=== PATIENT | female | born 1960 | race Caucasian/White ===

== ENCOUNTER 2022-12-26 07:20 | Outpatient (CLI) | payer OTHER, SELFPAY ==
--- NOTE | 2022-12-26 | ECG_ITS ---
[facility] Test Date: 2022-12-26 Pat Name: Amna Rangel Department: Room: Gender: Female School Admissions Representative: Amanda MarinWayne : 1960 Requested By: India Barrett Order Number: [id number] Maribel MD: India Barrett M.D. Interpretive Statements NAME OF STUDY: LEXISCAN SESTAMIBI STRESS TEST INDICATION: Chest Pain PROCEDURE: At the baseline, the blood pressure was 153/92 mm Hg with a heart rate of 54 bpm. The electrocardiogram showed sinus bradycardia, normal axis with no significant ST-T wave changes. ??? The Lexiscan was infused over a period of 20 seconds. A total of 0.4 milligrams of Lexiscan was infused. The stress phase was continued for a total of 5 minutes. Heart rate at the end of the stress phase was 87 bpm with a blood pressure of 142/90 mm Hg. The EKG at the peak infusion revealed sinus tachycardia with no significant ST-T wave changes. ??? Sestamibi was injected 20 seconds after the Lexiscan infusion. ??? Blood pressure at the end of the recovery phase was 124/90 mm Hg with a heart rate of 74 beats per minute. ??? CONCLUSION: 1. No significant EKG changes with the LexiScan infusion. 2. No LexiScan induced chest pain or cardiac arrhythmia. 3. Normal blood pressure and heart rate response. 4. Sestamibi/sestamibi perfusion scan pending; see separate report. Electronically Signed On 01-03-2023 23:32:20 CDT by India Barrett M.D. [id number]
[2022-12-26 07:42] VITALS: BMI 23.6
--- NOTE | 2022-12-26 07:43 | NMCV_ITS ---
NM you perf SPECT r/s* [id number] Juan Carlos Amna Age: 62 Gender: F : 1960 Exam Date: 12/26/2022 08:21 Ordering Phys: India Barrett MD ([email or web address]) Technologist: JANELLE Tellez Exam Location: [facility] Indications: CHEST PAIN, SHORTNESS OF BREATH STRESS TEST Please [facility] IMAGE PROTOCOL Rest/Stress 1 Lexiscan Day Radiopharmaceutical Dose (mCi) Administration Site Administered by Rest: Tc-99m 10.4 IV JANELLE Rios Sestamibi Stress:Tc-99m 32.6 IV JANELLE Rios Sestamibi Rest: 26-Dec-2022 60 Discovery 630 Stress: 26-Dec-2022 30 Discovery 630 0.4mg Lexiscan. Images obtained in supine and prone position. SPECT RESULTS Technical Quality: Excellent Raw Data Analysis: Normal Image Corrections: No attenuation or motion correction applied Summed Stress Score: 1 Summed Rest Score: 0 Summed Difference Score: 1 PERFUSION FINDINGS Very small sized perfusion abnormality of mild severity in apical lateral pete on supine stress images with improved tracer uptake in prone stress images. FUNCTIONAL RESULTS (calculated via Gated SPECT) Stress Image LV EF (%): 91 Stress EDV (mL):55 TID: 1.07 Stress ESV (mL):5 FUNCTIONAL FINDINGS: The left ventricle is normal in size. Transient Ischemia Dilatation of 1.1. The left ventricular ejection fraction is normal with a value of 91%. There is hyperdynamic left ventricular global systolic function. There is hyperdynamic left ventricular wall thickening. IMPRESSIONS 1. Myocardial perfusion imaging is normal. 2. Overall left ventricular systolic function is abnormal with regional wall motion abnormalities, LVEF=91%. 3. EKG portion of the study will be reported separately. 4. Scan indicates low risk for cardiac events. India Barrett MD (Electronically Signed) Final Date: 03 January 2023 23:27 S
--- NOTE | 2022-12-26 08:48 | PC.NURSE ---
Stress test - physician notified Pt reports she is unable to walk on treadmill due to knee injury and past knee surgeries. Pt is not willing to try treadmill test. Dr. Barrett notified by phone and received new orders for Lexiscan Mibi.
[2022-12-26] MEDS: regadenoson 0.4 Mg/5 ml Syringe IVP (09:08)
[2022-12-26] MEDS: ondansetron 2 mg/ML SDV 2 mL 4 MG IVP (09:13)
[2022-12-26 09:18] VITALS: BP 124/90; PULSE 77
== END 2022-12-26 07:21 | disposition home or self-care (01) ==
LOC: CDL 07:22
PROVIDERS: PCP Family Medicine; Visit Provider Internal Medicine Cardiovascular Disease
DX: R06.02 Shortness of breath (principal); R07.9 Chest pain, unspecified
CPT/HCPCS: 36415; 78452; 93017; 96375; A9500; J2405; J2785

== ENCOUNTER 2023-10-23 11:10 | Emergency (ER) | payer OTHER, SELFPAY ==
--- NOTE | 2023-10-23 11:15 | XR_ITS ---
WS: [id number] Exam: XR chest 1V portable [id number] Date/Time of Exam: 10/23/2023 11:23 AM Reason For Exam: cp No priors. The lungs are clear and fully expanded. Normal cardiomediastinal silhouette. No pleural effusions. S shaped thoracic scoliosis. Surgical clips in the RIGHT axilla. XR/XR chest 1V portable [id number] IMPRESSION: 1. No acute cardiopulmonary finding.
--- NOTE | 2023-10-23 11:15 | ECG_ITS ---
[facility] Test Date: 2023-10-23 Pat Name: Amna Rangel Department: Room: Gender: Female Qualifications Examiner: : 1960 Requested By: Sarah Francois Order Number: [id number] Maribel MD: Luis Martinez M.D. Measurements Intervals [place] Rate: 75 P: 47 NM: 150 QRS: 6 QRSD: 70 T: 29 QT: 345 QTc: 387 Interpretive Statements SINUS RHYTHM LEFT ATRIAL ENLARGEMENT [-0.15mV P-WAVE IN V1/V2] NONSPECIFIC T-WAVE ABNORMALITY INTERPRETATION BASED ON A DEFAULT AGE OF 40 YEARS Compared to ECG 09/02/2018 17:34:37 Atrial abnormality now present T-wave abnormality now present Left ventricular hypertrophy no longer present ST (T wave) deviation no longer present Electronically Signed On 10-23-2023 23:47:35 CDT by Luis Martinez M.D. [id number]
[2023-10-23 11:16] VITALS: BP 108/74; PULSE 79; RESP 16; TEMP 36.7; O2SAT 94
--- NOTE | 2023-10-23 11:43 | W.ED.CHESTPA ---
HPI - Chest Pain General: Chief Complaint: Chest Pain Stated Complaint: Chest Pain Time Seen by Provider: 10/23/23 11:24 Mode of arrival: ambulatory Limitations: no limitations History of Present Illness: 63-year-old female has a history of coronary disease states she had stents placed 5 years ago she states that she started having chest pain felt nauseous diaphoretic this morning she taken nitro states her pain is since resolved states she still having some mild discomfort in her left shoulder though. Denies any cough denies any fevers. Associated symptoms: Deny abdominal pain, dyspnea, fever(s), nausea or vomiting Review of Systems Const: Denies: fever(s), chills, body aches or change in appetite ENMT: Denies: throat pain or dental pain Card: Reports: chest pain Resp: Denies: dyspnea GI: Denies: abdominal pain, nausea, vomiting or diarrhea Musc: Denies: neck pain or back pain Skin/Breast: Denies: rash Neuro: Denies: headache(s) PFSH ED PFSH: Medical History Coronary artery disease GERD (gastroesophageal reflux disease) HTN (hypertension) Asthma Hyperlipidemia Surgical History History of coronary artery stent placement 2019 Family History Sister Asthma Mother Cancer Rheumatoid arthritis Family/Other Cancer Father Cancer Grandmother Stroke Social History Smoking and tobacco/nicotine status: former use of tobacco/nicotine Alcohol intake: current Alcohol intake frequency: holidays/special occasions only Substance/Drug Use: never Physical Exam Const: COMMON NORMALS: patient oriented x3 HENMT: COMMON NORMALS: normocephalic and atraumatic HEAD & SCALP: normocephalic and atraumatic Eye: COMMON NORMALS: Equal, round and reactive pupils present and EOMs intact bilaterally PUPIL: Yes Equal, round and reactive pupils present Neck/C-Spine: COMMON NORMALS: full ROM and supple Chest: COMMONS NORMALS: normal inspection of the chest and normal palpation of entire chest wall Resp: COMMON NORMALS: normal respiratory effort, No retractions, No use of accessory muscles and clear to auscultation bilaterally AUSCULTATION: clear to auscultation bilaterally Cardio: COMMON NORMALS: regular rate, regular rhythm and No murmurs present (Cardio) RATE: regular rate RHYTHM: regular rhythm GI: COMMON NORMALS: Normal to inspection, nondistended, normoactive bowel sounds present, Soft to palpation, non-tender and no masses PALPATION: Yes Soft to palpation Extremity: COMMON NORMALS: normal to inspection and full ROM Neuro: COMMON NORMALS: patient oriented x3, moves all extremities and no focal motor deficits Psych: COMMON NORMALS: mental status grossly normal, Normal thought process present and cooperative THOUGHT PROCESS: Normal thought process present Skin: COMMON NORMALS: no rashes or lesions noted and no wounds GENERAL SKIN EXAM: no rashes or lesions noted Course Vital Signs: Vital signs: Vital Signs Temperature 98.0 F 10/23/23 11:16 Pulse Rate 77 10/23/23 15:00 Respiratory Rate 16 10/23/23 15:00 Blood Pressure 128/71 10/23/23 15:00 Pulse Oximetry 94 10/23/23 15:00 Oxygen Delivery Me thod Room Air 10/23/23 15:00 MDM - Chest Pain Medical Decision Making Patient presents for chest pain since resolved. She has no signs of acute ACS dissection or pulm embolism EKGs and troponins here are negative she is to follow-up with cardiology I feel she is stable for discharge informed if she worsen she is to return she understands agrees to plan. Medical Records I reviewed the patient's medical records. Lab Data I reviewed the patient's lab results. 10/23/23 11:37 10/23/23 11:37 Radiology Impressions Chest X-Ray 10/23/23 11:15 IMPRESSION: 1. No acute cardiopulmonary finding. Laboratory Results WBC 4.75 10^3/uL (3.29-11.43) 10/23/23 11:37 RBC 6.32 10^6/uL (3.85-5.65) H 10/23/23 11:37 Hgb 17.70 g/dL (11.27-16.99) H 10/23/23 11:37 Hct 53.4 % (36-47) H 10/23/23 11:37 MCV 84.5 fl (85-98) L 10/23/23 11:37 MCH 28.0 pg (27-33) 10/23/23 11:37 MCHC 33.1 g/dL (30-55) 10/23/23 11:37 RDW 12.0 % (12.1-15.1) L 10/23/23 11:37 Plt Count 152 10^3/cmm (157-399) L 10/23/23 11:37 MPV 9.3 fL (7.4-10.4) 10/23/23 11:37 Neut % (Auto) 65.3 % 10/23/23 11:37 Lymph % (Auto) 20.0 % 10/23/23 11:37 [place] % (Auto) 13.1 % 10/23/23 11:37 Eos % (Auto) 0.8 % 10/23/23 11:37 Baso % (Auto) 0.6 % 10/23/23 11:37 Neut # (Auto) 3.10 10^3/uL (1.8-7.7) 10/23/23 11:37 Lymph # (Auto) 1.0 10^3/uL (0.8-4.8) 10/23/23 11:37 [place] # (Auto) 0.6 10^3/uL (0.2-0.9) 10/23/23 11:37 Eos # (Auto) 0.0 10^3/uL (0.0-0.8) 10/23/23 11:37 Baso # (Auto) 0.0 10^3/uL (0.0-0.1) 10/23/23 11:37 Nucleated RBC % (auto) 0 % 10/23/23 11:37 Nucleated RBCs # 0.0 /100WBC 10/23/23 11:37 PT 12.80 SECONDS (12.1-14.9) 10/23/23 11:37 INR 0.93 (0.8-1.2) 10/23/23 11:37 Sodium 140 mmol/L (136-145) 10/23/23 11:37 Potassium 4.0 mmol/L (3.5-5.1) 10/23/23 11:37 Chloride 95 mmol/L (98-107) L 10/23/23 11:37 Carbon Dioxide 32 mmol/L (22-29) H 10/23/23 11:37 Anion Gap 17.0 (5-19) 10/23/23 11:37 BUN 17 mg/dL (8-23) 10/23/23 11:37 Creatinine 0.8 mg/dL (0.5-0.9) 10/23/23 11:37 GFR Calculation 72.9 mL/min (90-130) L 10/23/23 11:37 Glucose 97 mg/dL (65-115) 10/23/23 11:37 Calculated Osmolality 291 mOsm/kg (285-295) 10/23/23 11:37 Calcium 10.2 mg/dL (8.5-10.5) 10/23/23 11:37 Total Bilirubin 0.6 mg/dL (0.15-1.2) 10/23/23 11:37 AST 39 U/L (0-32) H 10/23/23 11:37 ALT 32 U/L (0-33) 10/23/23 11:37 Alkaline Phosphatase 68 U/L (35-105) 10/23/23 11:37 Troponin T Baseline < 6 ng/L (0-10) 10/23/23 11:37 Troponin T 120 Minute 6.60 ng/L (0-10) 10/23/23 13:25 Delta Troponin T 0.95395 ABS# (0-10) 10/23/23 13:25 Total Protein 7.7 g/dL (6.6-8.7) 10/23/23 11:37 Albumin 4.8 g/dL (3.5-5.2) 10/23/23 11:37 Globulin 2.9 g/dL (1.3-4.6) 10/23/23 11:37 Lipase 57 U/L (13-60) 10/23/23 11:37 All radiology interpretation(s) finalized by discharge Discharge Plan Discharge Patient Disposition: Home Clinical Impression: Chest pain Condition: Stable Prescriptions: No Action aspirin 81 mg tablet,delayed release (DR/EC) 81 mg PO DAILY albuterol sulfate [Ventolin HFA] 90 mcg/actuation HFA aerosol inhaler 2 puff inhalation Q6H PRN (Reason: Shortness Of Breath) duloxetine 60 mg capsule,delayed release(DR/EC) 60 mg PO BID metoprolol tartrate 25 mg tablet 25 mg PO DAILY triamcinolone acetonide 0.1 % ointment 1 applic topical BID PRN (Reason: Skin Irritation) Rx Instructions: Apply to affected area no more than 2 weeks per month alternating with Clobetasol clobetasol 0.05 % ointment 1 applic topical BID PRN (Reason: Skin Irritation) Rx Instructions: Apply to affected areas no more than 2 weeks/mo prn alternating with triamcinolone diazepam [Valium] 5 mg tablet 2.5 mg PO BID PRN (Reason: Anxiety) isosorbide mononitrate 30 mg tablet extended release 24 hr 30 mg PO DAILY Qty: 90 3RF atorvastatin 10 mg tablet 10 mg PO DAILY chlorthalidone 25 mg tablet 25 mg PO DAILY Discharge Orders: Discharge ED (Routine); Ordered 10/23/23 Ordered By: Sarah Francois Referrals: Judith Guthrie MD [Primary Care Provider] - Discharge Diet: Advance as tolerated Discharge Activity: Resume usual activity Patient Instructions: Chest Pain (ED) Coding Level of Care Code ED Fabrication Department Supervisor for Danielle Pickett
[2023-10-23] MEDS: aspirin 81 mg Chew Tablet 324 MG PO (11:45)
[2023-10-23 11:54] LABS: Basophils % 0.6 %; Eosinophils % 0.8 %; Hematocrit 53.4 % (36-47); Mean Corpuscular HGB Conc 33.1 g/dL (30-55); Mean Corpuscular Volume 84.5 fl (85-98); Mean Platelet Volume 9.3 fL (7.4-10.4); Monocytes # 0.6 10^3/uL (0.2-0.9); Monocytes % 13.1 %; Neutrophils % 65.3 %; Nucleated Red Blood Cells % 0 %; Platelet Count 152 10^3/cmm (157-399); Red Blood Count 6.32 10^6/uL (3.85-5.65); White Blood Count 4.75 10^3/uL (3.29-11.43)
[2023-10-23 12:11] LABS: Alanine Aminotransferase 32 U/L (0-33); Albumin Level 4.8 g/dL (3.5-5.2); Alkaline Phosphatase 68 U/L (35-105); Aspartate Amino Transferase 39 U/L (0-32); Blood Urea Nitrogen 17 mg/dL (8-23); Calcium 10.2 mg/dL (8.5-10.5); Carbon Dioxide 32 mmol/L (22-29); Chloride 95 mmol/L (98-107); Creatinine Clr Calc Pharmacy 57.6394; Globulin 2.9 g/dL (1.3-4.6); Glomerular Filtration Rate 72.9 mL/min (90-130); Glucose 97 mg/dL (65-115); Lipase 57 U/L (13-60); Osmolality Calculated 291 mOsm/kg (285-295); Sodium 140 mmol/L (136-145); Total Bilirubin 0.6 mg/dL (0.15-1.2); Total Protein 7.7 g/dL (6.6-8.7)
[2023-10-23 12:14] LABS: Troponin(5th) Baseline < 6 ng/L (0-10)
[2023-10-23 12:19] VITALS: BP 133/79; PULSE 67; RESP 16; O2SAT 93
[2023-10-23 12:27] LABS: INR 0.93 (0.8-1.2)
[2023-10-23 13:00] VITALS: BP 126/62; PULSE 65; RESP 16; O2SAT 96
--- NOTE | 2023-10-23 13:00 | PC.NURSE ---
Pt on bedside nurse monitoring
--- NOTE | 2023-10-23 13:13 | ECG_ITS ---
[facility] Test Date: 2023-10-23 Pat Name: Amna Rangel Department: Room: Gender: Female District Manager Postal Service: : 1960 Requested By: Sarah Francois Order Number: [id number] Reading MD: Luis Martinez M.D. Measurements Intervals [address] [place] Rate: 61 P: 54 TX: 167 QRS: -5 QRSD: 64 T: 203 QT: 388 QTc: 392 Interpretive Statements Possible SINUS RHYTHM Left axis deviation Heavy baseline artifact Defective EKG Electronically Signed On 10-25-2023 0:12:33 CDT by Luis Martinez M.D. [id number]
[2023-10-23 14:00] VITALS: BP 127/63; PULSE 66; RESP 16; O2SAT 97
[2023-10-23 14:38] LABS: Troponin 5 2HR Delta 0.60001 ABS# (0-10)
[2023-10-23 15:00] VITALS: BP 128/71; PULSE 77; RESP 16; O2SAT 94
[2023-10-23 15:45] VITALS: BP 132/73; PULSE 71; RESP 16; O2SAT 96
--- NOTE | 2023-10-25 08:00 | DCPLANNER ---
messaged heart/lung for er f/u
== END 2023-10-23 15:45 | disposition home or self-care (01) ==
PROVIDERS: Emergency Provider Emergency Medicine; PCP Family Medicine
DX: R07.9 Chest pain, unspecified (principal); Z79.82 Long term (current) use of aspirin; Z87.891 Personal history of nicotine dependence; I25.10 Atherosclerotic heart disease of native coronary artery without angina pectoris; I10 Essential (primary) hypertension; E78.5 Hyperlipidemia, unspecified
CPT/HCPCS: 71045; 80053; 83690; 84484; 85025; 85610; 93005; 99285

== ENCOUNTER → 2024-10-16 11:43 | Outpatient (BNVA) | payer OTHER, SELFPAY | PROVIDERS: PCP Family Medicine; Visit Provider Internal Medicine Cardiovascular Disease | DX: R07.9 Chest pain, unspecified (principal); R00.1 Bradycardia, unspecified | CPT/HCPCS: 93005 ==

== ENCOUNTER 2024-12-23 07:25 | Outpatient (CLI) | payer OTHER, SELFPAY ==
[2024-12-23 08:18] VITALS: BMI 22.8
--- NOTE | 2024-12-23 08:20 | ECG_ITS ---
[facility] Test Date: 2024-12-23 Pat Name: Amna Rangel Department: Room: Gender: Female Lead Applications Developer: : 1960 Requested By: Luis Martinez Order Number: [id number] Maribel MD: Pasquale Colon M.D. Interpretive Statements Procedure: At the baseline, the blood pressure was 155/98 with a heart rate of 71 bpm. The Resting electrocardiogram showed normal sinus rhythm with no ST-T wave abnormality. The Lexiscan was infused over a period of 20 seconds. A total of 0.4 mg of Lexiscan was infused. The stress phase was continued for a total of 5 minutes. The blood pressure at the end of the stress phase was 172/100 with a heart rate of 98 bpm. Sestamibi was injected 20 seconds after the Lexiscan infusion. At the end of recovery the patient's blood pressure was 158/102 with a heart rate of 86 bpm. After Lexiscan stress, the patient had mild ST and T wave changes Consistent with possible mild ischemia. Conclusion: 1. Mildly abnormal EKG response to Lexiscan infusion consistent with possible mild ischemia. 2. No Lexiscan induced chest pain or cardiac arrhythmia. 3. Normal blood pressure and heart rate response. 4. Nuclear myocardial perfusion scan pending; see separate report. Electronically Signed On 12-23-2024 23:02:29 CDT by Pasquale Colon M.D. [email or web address] [id number]
--- NOTE | 2024-12-23 08:20 | NMCV_ITS ---
NM you perf SPECT r/s* [id number] Juan CarlosAmna Age: 64 Gender: F : 1960 Exam Date: 12/23/2024 08:56 Ordering Phys: Luis Martinez MD ([email or web address]) Technologist: JANELLE Mg Exam Location: [facility] Indications: cp STRESS TEST Please see [facility] for [facility] IMAGE PROTOCOL Rest/Stress 1 Lexiscan Day Radiopharmaceutical Dose (mCi) Administration Site Administered by Rest: Tc-99m 10.9 IV Chrissy Byers MOULDER OPERATOR Sestamibi Stress:Tc-99m 32.4 IV Chrissy Byers, MOULDER OPERATOR Sestamibi Rest: 23-Dec-2024 60 Discovery 630 Stress: 23-Dec-2024 30 Discovery 630 0.4mg Lexiscan. Images obtained in supine and prone position. SPECT RESULTS Technical Quality: Good Raw Data Analysis: Normal Image Corrections: No attenuation or motion correction applied Summed Stress Score: 2 Summed Rest Score: 1 Summed Difference Score: 1 PERFUSION FINDINGS There is a small area of mildly reduced tracer counts in the apical to mid inferolateral wall segment that is partially reversible on the resting images compared to the stress images. FUNCTIONAL RESULTS (calculated via Gated SPECT) Stress Image LV EF (%): 85 Stress EDV (mL):46 TID: 0.96 Stress ESV (mL):7 FUNCTIONAL FINDINGS: There is normal left ventricular systolic function. EF >75%. IMPRESSIONS 1. Mildly abnormal perfusion study with a small area of mixed infact and lavelle- infarct ischemia in the apical to mid inferolateal wall segment. 2. Normal left venticular wall motion, EF >75%. Pasquale Colon MD, FACC (Electronically Signed) Final Date: 23 December 2024 12:06 S
[2024-12-23] MEDS: aminophylline 25 mg/mL SDV 20 mL IVP (09:46)
[2024-12-23 09:52] VITALS: BP 158/102; PULSE 85
--- NOTE | 2024-12-23 13:30 | USCV_ITS ---
Amna Rangel Age: 64 Gender: F : 1960 Exam Date: 12/23/2024 07:44 Ordering Phys: Luis Martinez MD ([email or web address]) Technologist: Exam Location: [facility] Indication: sob cp BP: 130 / 80 HR: 64 Rhythm: Sinus Technical Quality: Adequate MEASUREMENTS (Male / Female) Normal Values 2D ECHO LV Diastolic Diameter PLAX 3.7 cm 4.2 - 5.9 / 3.9 - 5.3 cm IVS Diastolic Thickness 1.1 cm 0.6 - 1.0 / 0.6 - 0.9 cm IVS Systolic Thickness 2.0 cm LVPW Diastolic Thickness 1.2 cm 0.6 - 1.0 / 0.6 - 0.9 cm LVPW Systolic Thickness 1.1 cm LVOT Diameter 2.0 cm LV Ejection Fraction 2D Teich 57.2 % LV Ejection Fraction MOD 4C 72.0 % LV Ejection Fraction MOD 2C 71.6 % LV Ejection Fraction 2C AL 72.8 % LA Diameter 2.5 cm RA Systolic Volume 4C AL 19.9 ml RA Systolic Volume 4C MOD 18.9 ml Aorta at Sinotubular Diameter 3.4 cm IVC Diameter 1.4 cm M-MODE LA Ao Ratio MM 1.3 AV Cusp Separation MM 2.1 cm DOPPLER AV Peak Velocity 152.7 cm/s LVOT Peak Velocity 93.0 cm/s AV Area Cont Eq vti 2.1 cm squared AV Area Cont Eq pk 1.9 cm squared MV Area PHT 5.9 cm squared Mitral E to A Ratio 1.0 TV Peak Velocity 185.5 cm/s TR Peak Velocity 253.0 cm/s TR Peak Gradient 25.6 mmHg TV Peak E Velocity 93.0 cm/s PV Peak Velocity 104.0 cm/s FINDINGS Left Ventricle Normal left ventricular size and systolic function, EF 71%.mild left ventricular hypertrophy. No regional wall motion abnormalities. Right Ventricle Normal right ventricular size and systolic function. Right Atrium The right atrium is normal in size. Left Atrium The left atrium is normal in size. Mitral Valve No gross abnormalities noted Aortic Valve Thickened aortic valve. Trace aortic valve regurgitation. Tricuspid Valve Trace tricuspid valve regurgitation. Pulmonic Valve Mild pulmonary valve regurgitation. Pericardium No pericardial effusion. Aorta Dilated ascending aorta measuring 4.19 cm in diameter IVC Normal inferior vena cava. CONCLUSIONS Dilated ascending aorta measuring 4.19 cm in diameter. Normal left ventricular size and systolic function, EF 71%. Mild left ventricular hypertrophy. No regional wall motion abnormalities. Thickened aortic valve. Trace aortic valve regurgitation. Trace tricuspid valve regurgitation. Mild pulmonary valve regurgitation. Estimated pulmonary artery peak systolic pressure 29 mmHg There is no pericardial effusion. There are no intracardiac masses. No similar previous studies are available for comparison Dr Luis Martinez MD [facility] (Electronically Signed) Final Date: 23 December 2024 10:09 S
== END 2024-12-23 07:26 | disposition home or self-care (01) ==
LOC: RAD 07:35 → CDL 08:16
PROVIDERS: PCP Family Medicine; Visit Provider Internal Medicine Cardiovascular Disease
DX: R07.9 Chest pain, unspecified (principal); I37.1 Nonrheumatic pulmonary valve insufficiency; I77.810 Thoracic aortic ectasia; I51.7 Cardiomegaly; I35.1 Nonrheumatic aortic (valve) insufficiency; I36.1 Nonrheumatic tricuspid (valve) insufficiency; R93.1 Abnormal findings on diagnostic imaging of heart and coronary circulation; I21.19 ST elevation (STEMI) myocardial infarction involving other coronary artery of inferior wall
CPT/HCPCS: 36415; 78452; 93017; 93306; 96374; 96375; A9500; J0280; J2785

== ENCOUNTER → 2025-03-19 12:56 | Day surgery (SDC) | payer OTHER, SELFPAY ==
--- NOTE | 2025-03-19 13:04 | XR_ITS ---
WS: [id number] XR chest 1V portable [id number] REASON FOR EXAM: Post PICC insertion FINDINGS: Right arm PICC line placement. The tip is in the mid SVC. nuclear medicine pet ct technologist was advised to the PICC line nurse to advance it [address] it in the distal SVC in a position appropriate for use. Instructions were given at 1:35 p.m. 03/27/2025. No acute pulmonary parenchymal or pleural abnormalities identified. XR/XR chest 1V portable [id number] IMPRESSION: Right arm PICC line placement as above.
[2025-03-19 14:04] VITALS: BP 105/67; PULSE 70; RESP 18; TEMP 36.3; O2SAT 92
--- NOTE | 2025-03-19 14:05 | PICC.NOTE ---
Double lumen PICC placed to right basilic vein. Referred to vascular access nurse for PICC placement due to immediate need for chemotherapy. Risks and benefits discussed and informed consent obtained from pt. Right arm assessed with right basilic vein measuring 3.3 mm, straight, and apparent best choice for placement. Using sterile technique and MST, right basilic vein accessed x 1 stick. Mid-arm circumference measured 10 cm from right AC 25 cm. Trimmed cath 40 cm with 0 cm external length noted. CXR shows tip in mid SVC. Radiologist suggested advancing 2 cm, which was completed, placing PICC tip in distal SVC, in good position for use per radiologist. Line secured with stat-lock. Insertion site covered with Biopatch and TSM. Report given to [facility] nurseTiana. Pt to follow up on Sunday at [facility] with first chemo treatment. PICC dressing to be changed at that time.
== END ==
LOC: GILAB 12:58
PROVIDERS: PCP Family Medicine; Visit Provider Internal Medicine Medical Oncology
DX: C34.82 Malignant neoplasm of overlapping sites of left bronchus and lung (principal)
CPT/HCPCS: 36573; 71045

== ENCOUNTER 2025-03-25 08:00 | Oncology outpatient (recurring) (ONCR) | payer OTHER, SELFPAY ==
[2025-03-23 08:21] VITALS: BP 110/74; PULSE 65; RESP 17; TEMP 37.1; O2SAT 97
[2025-03-23 08:22] LABS: Hematocrit 36.6 % (36-47); Hemoglobin 12.00 g/dL (11.27-16.99); Mean Corpuscular HGB Conc 32.8 g/dL (30-55); Mean Corpuscular Hemoglobin 27.8 pg (27-33); Mean Corpuscular Volume 84.9 fl (85-98); Nucleated Red Blood Cells % 0 %; Platelet Count 146 10^3/cmm (157-399); Red Blood Count 4.31 10^6/uL (3.85-5.65); White Blood Count 2.20 10^3/uL (3.29-11.43)
[2025-03-23 08:46] LABS: Slide Review Slide Review Perform
[2025-03-23 09:30] LABS: Alanine Aminotransferase 27 U/L (0-33); Albumin Level 3.4 g/dL (3.5-5.2); Alkaline Phosphatase 69 U/L (35-105); Anion Gap 10.7 (5-19); Aspartate Amino Transferase 22 U/L (0-32); Blood Urea Nitrogen 11 mg/dL (8-23); Calcium 8.9 mg/dL (8.5-10.5); Carbon Dioxide 26 mmol/L (22-29); Chloride 106 mmol/L (98-107); Globulin 2.6 g/dL (1.3-4.6); Glucose 123 mg/dL (65-115); Osmolality Calculated 289 mOsm/kg (285-295); Potassium 3.7 mmol/L (3.5-5.1); Sodium 139 mmol/L (136-145); Thyroid Stimulating Hormone 1.51 uIU/mL (0.27-4.20); Total Protein 6.0 g/dL (6.6-8.7)
[2025-03-24 09:30] VITALS: RESP 18; O2SAT 98
[2025-03-24] MEDS: morphine 4 mg/mL SDV 1 mL 2 MG IVP (09:30)
[2025-03-24 10:00] VITALS: BP 135/84; PULSE 98; RESP 18; TEMP 36.6; O2SAT 98
== END 2025-03-29 23:59 | disposition home or self-care (01) ==
PROVIDERS: PCP Family Medicine; Visit Provider Internal Medicine Medical Oncology
DX: C34.82 Malignant neoplasm of overlapping sites of left bronchus and lung; Z79.899 Other long term (current) drug therapy; Z53.9 Procedure and treatment not carried out, unspecified reason
CPT/HCPCS: 80053; 84443; 85025; 96372; 96374; J2270; Q5101

== ENCOUNTER 2025-04-01 08:02 | Oncology outpatient (recurring) (ONCR) | payer OTHER, SELFPAY ==
[2025-03-30 08:25] LABS: Hematocrit 37.8 % (36-47); Hemoglobin 12.30 g/dL (11.27-16.99); Mean Corpuscular HGB Conc 32.5 g/dL (30-55); Mean Corpuscular Hemoglobin 27.9 pg (27-33); Mean Corpuscular Volume 85.7 fl (85-98); Nucleated Red Blood Cells % 0.2 %; Platelet Count 336 10^3/cmm (157-399); Red Blood Count 4.41 10^6/uL (3.85-5.65); White Blood Count 11.28 10^3/uL (3.29-11.43)
[2025-03-30 08:43] LABS: Alanine Aminotransferase 38 U/L (0-33); Albumin Level 4.1 g/dL (3.5-5.2); Alkaline Phosphatase 91 U/L (35-105); Anion Gap 12.0 (5-19); Aspartate Amino Transferase 30 U/L (0-32); Blood Urea Nitrogen 19 mg/dL (8-23); Calcium 9.2 mg/dL (8.5-10.5); Carbon Dioxide 28 mmol/L (22-29); Chloride 104 mmol/L (98-107); Creatinine Clr Calc Pharmacy 85.7650; Globulin 2.7 g/dL (1.3-4.6); Glucose 106 mg/dL (65-115); Osmolality Calculated 293 mOsm/kg (285-295); Potassium 4.0 mmol/L (3.5-5.1); Sodium 140 mmol/L (136-145); Total Protein 6.8 g/dL (6.6-8.7)
[2025-03-30 08:48] LABS: Slide Review Slide Review Perform
[2025-03-30 09:18] VITALS: BP 120/76; PULSE 65; RESP 16; TEMP 36.1; O2SAT 96
[2025-03-30] MEDS: dexamethasone 4 mg/mL INJ 5 mL 12 MG IVP (09:50)
[2025-03-30] MEDS: diphenhydrAMINE 50 mg/mL SDV 1mL 25 MG IVP (09:54)
[2025-03-30] MEDS: durvalumab 1,500 MG in sodium chloride 0.9% 250 ML 280 MG IV (10:52)
[2025-03-30] MEDS: etoposide 140 MG in sodium chloride 0.9%(non-DEHP) 500 ML 507 MG IV (13:27)
[2025-03-30 14:59] VITALS: BP 136/78; PULSE 95; RESP 17; TEMP 37.3; O2SAT 97
[2025-03-31 08:06] VITALS: BP 144/79; PULSE 76; RESP 16; TEMP 37; O2SAT 97
[2025-03-31] MEDS: ondansetron 2 mg/ML SDV 2 mL 8 MG IVP (08:14)
[2025-03-31] MEDS: etoposide 140 MG in sodium chloride 0.9%(non-DEHP) 500 ML 507 MG IV (09:09)
[2025-03-31 10:28] VITALS: BP 147/86; PULSE 73; TEMP 36.3; O2SAT 97
[2025-04-01 08:24] VITALS: BP 147/78; PULSE 86; TEMP 36.2; O2SAT 99
[2025-04-01] MEDS: etoposide 140 MG in sodium chloride 0.9%(non-DEHP) 500 ML 507 MG IV (09:27)
[2025-04-01] MEDS: pegfilgrastim 6 mg/0.6 mL Kit (onpro) SUBCUT (10:58)
[2025-04-01 11:15] VITALS: BP 164/104; PULSE 81; RESP 16; TEMP 36.7; O2SAT 99
== END 2025-04-01 15:33 | disposition home or self-care (01) ==
PROVIDERS: PCP Family Medicine; Visit Provider Internal Medicine Medical Oncology
DX: Z51.11 Encounter for antineoplastic chemotherapy; C34.82 Malignant neoplasm of overlapping sites of left bronchus and lung; Z79.634 Long term (current) use of topoisomerase inhibitor; Z79.899 Other long term (current) drug therapy; Z53.9 Procedure and treatment not carried out, unspecified reason
CPT/HCPCS: 36592; 80053; 85025; 96367; 96375; 96377; 96413; 96417; A4222; J1100; J1200; J1453; J2405; J2469; J2506; J3490; J7030; J7040; J7050; J9045; J9173; J9181; J9999

== ENCOUNTER 2025-04-08 09:34 | Day surgery (SDC) | payer OTHER, SELFPAY ==
[2025-04-08] VITALS (7 sets, daily range): BP systolic 113–130; BP diastolic 66–75; PULSE 67–80; RESP 16–23; TEMP 36.3–36.9; O2SAT 91–97; BMI 21.3
--- NOTE | 2025-04-08 09:59 | SC_ITS ---
WS: [email or web address] C-arm FL for CVA [id number] REASON FOR EXAM: Port-A-Cath insertion FINDINGS: Chemotherapy infusion port of the right chest with trans right internal jugular infusion catheter. Tip of the catheter appears to be in the distal SVC. SC/C-arm FL for CVA [id number] IMPRESSION: Chemotherapy port and infusion catheter placement as above.
--- NOTE | 2025-04-08 10:09 | ANES.PREANE2 ---
Pre-Anesthetic Assessment Height/Weight: Height 4 ft 10 in Weight 102 lb O2 Del Method Room Air 04/08/25 10:05 Preop Diagnosis: Small cell lung cancer Operation Date: 04/08/25 11:00 Proposed Procedures p Port a Cath Insertion [id number] C34.82(Not Applicable) - Deepak Soto MD Was Beta Delmer taken within 24 hours: N/A Was Clonidine taken within 24 hours: N/A Last intake: Intake Last Liquid Date 04/07/25 Last Liquid Time 20:00 Last Solid Date 04/07/25 Last Solid Time 20:00 Social No alcohol and No tobacco Exam alert and oriented x 3 Airway Submandibular: within normal limits Cervical ROM: within normal limits Mallampati: Class II Dentition: full Anesthetic Plan ASA status: 4 Anesthesia: MAC Other: No prior issues with anesthesia NPO since yesterday evening History of hypertension on metoprolol GERD on Protonix Rheumatoid arthritis CT of the neck showing metastatic carcinoma of the lung invading into the trachea. Occlusion of the right upper lobe bronchus Patient has recurrent lung spasms/coughing due to irritation in her lungs from mass Oncology planning on starting chemotherapy Plan for MAC anesthesia with local ViA surgeon Medications/Allergies Home Medications ?Medication ?Instructions ?Recorded ?Confirmed ?Last Taken ?Type albuterol sulfate 90 mcg/actuation 2 puff inhalation Q6H PRN 11/22/20 04/07/25 Unknown History aerosol inhaler (Ventolin HFA) Shortness Of Breath diazepam 5 mg tablet (Valium) 5 mg PO BID PRN Anxiety 11/02/22 04/07/25 04/08/25 History metoprolol tartrate 25 mg tablet 25 mg PO DAILY 11/02/22 04/07/25 04/08/25 History atorvastatin 10 mg tablet 10 mg PO DAILY 10/23/23 04/07/25 04/07/25 History biotin 2,500 mcg capsule 5,000 mcg PO DAILY 10/16/24 04/07/25 Unknown History duloxetine 60 mg capsule,delayed 60 mg PO QDAY 10/16/24 04/07/25 04/07/25 History release isosorbide mononitrate 60 mg 60 mg PO DAILY #90 tabs 01/19/25 04/07/25 04/08/25 Rx tablet,extended release 24 hr magnesium 200 mg tablet 200 mg PO DAILY 03/16/25 04/07/25 04/07/25 History multivitamin 1 tab PO DAILY 03/16/25 04/07/25 04/07/25 History ondansetron HCl 8 mg tablet 8 mg PO Q8H 03/16/25 04/07/25 Unknown History prochlorperazine maleate 10 mg 10 mg PO PRN PRN Nausea 03/16/25 04/07/25 Unknown History capsule,extended release tizanidine 4 mg capsule 4 mg PO Q8H PRN Spasms 03/16/25 04/07/25 04/07/25 History oxycodone 10 mg tablet 10 mg PO Q4H PRN pain 30 days #120 03/23/25 04/07/25 04/03/25 Rx tabs gummie 1 gummy PO PRN PRN appetite 04/02/25 04/07/25 04/07/25 History sennosides 8.6 mg tablet (Senna 8.6 mg PO DAILY 04/02/25 04/07/25 04/07/25 History Lax) pantoprazole 40 mg tablet,delayed 40 mg PO DAILY #30 tabs 04/06/25 04/07/25 04/07/25 Rx release Allergies Allergy/AdvReac Type Severity Reaction Status Date / Time ciprofloxacin Allergy ALGY-Rash Verified 04/07/25 13:58 PFSH Anesthesia Medical History Coronary artery disease GERD (gastroesophageal reflux disease) HTN (hypertension) Asthma Hyperlipidemia Surgical History History of coronary artery stent placement 2019 Family History Sister Asthma Mother Cancer Rheumatoid arthritis Family/Other Cancer Father Cancer Grandmother Stroke Social History Smoking and tobacco/nicotine status: former use of tobacco/nicotine Alcohol intake: current Alcohol intake frequency: holidays/special occasions only Substance/Drug Use: never Data Anesthesia Cardiac Studies: Echocardiogram 12/23/24 Sestamibi Stress Test (Cardiology) 12/23/24
[2025-04-08] MEDS: fentaNYL 50 mcg/mL INJ 2mL IVP (10:43)
--- NOTE | 2025-04-08 10:51 | W.PM.OPSUD ---
Surgery/Procedure H&P Update DATE OF PROCEDURE: April 08, 2025 DATE H&P PERFORMED: 04/02/25 H&P UPDATE INFORMATION: I have reviewed H&P completed within last 30 days, I have examined patient prior to procedure, No changes to prior documentation and Risks and benefits of the procedure reviewed PREOP DIAGNOSIS: Small cell lung cancer PLANNED PROCEDURE: Operation Date: 04/08/25 11:00 Proposed Procedures p Port a Cath Insertion 86368 C34.82(Not Applicable) - Deepak Soto MD
[2025-04-08] MEDS: ceFAZolin 2,000 mg SDV 2000 MG IVP (11:09)
[2025-04-08] MEDS: BUPivacaine 0.25% INJ 10 mL 6 ML INJECTION (11:50)
[2025-04-08] MEDS: heparin, porcine 1,000 unit/mL INJ 10 mL 6000 UNIT IRRIGATION (11:50)
[2025-04-08] MEDS: lidocaine-epi 1% 20 mL INJ 6 ML INJECTION (11:52)
--- NOTE | 2025-04-08 12:15 | P.OP_ITS ---
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 Discussed risk and benefits and patient agreed to proceed with Port-A-Cath insertion Procedure: Patient was brought into the operating room and a timeout was carried out. Procedure was done under MAC. Patient was placed supine with the arms tucked and in Trendelenburg. Patient was prepped and draped in the usual sterile fashion. Using ultrasound guidance the right internal jugular vein was accessed. A guidewire was then placed down to the atriocaval junction using fluoroscopy. The finder needle was removed and the guidewire was secured. I then turned my attention to creating a pocket over the right chest. Make sure to locally infiltrated using plain lidocaine and bupivacaine at the site of the pocket and throughout the tunnel site. I confirmed adequate hemostasis at the pocket. I then proceeded to place the port that was already preassembled and flushed with heparinized saline and the chest pocket. I tunneled the catheter from the chest to the neck at the site where I accessed the internal jugular vein. I measured and adjusted the length of the catheter so it would reach the atrial caval junction. At this point, I used a dilator to dilate the tract into the internal jugular vein using fluoroscopy. I removed the guidewire and proceeded to thread the central venous catheter through the introducer. In the process, I removed the sheath as a completely pushed the catheter into the internal jugular vein. I then confirmed adequate placement of the catheter by performing intraoperative interpretation of fluoroscopy. The tip of the catheter was confirmed to be placed in the atriocaval junction. There were no kinks noted throughout the trajectory of the catheter. I then proceeded to test the port and was satisfied with its functionality. I proceeded to flushed the catheter without any issues. I then hep-locked the port. Skin was closed using deep dermal 3-0 Vicryl, subcuticular 4-0 Monocryl, and Dermabond. Patient was then transferred to PACU without any complications.
--- NOTE | 2025-04-08 13:30 | ANE.PACU2 ---
Inpatient post-anesthesia follow up: Airway intact: Yes Vital signs: Temperature 98 F Pulse Rate 80 Respiratory Rate 17 Blood Pressure 120/75 Pulse Oximetry 96 Oxygen Delivery Me thod Room Air Oxygen Flow Rate Fraction of Inspir ed Oxygen Hydration adequate: Yes Nausea and vomiting: No Pain level: 1 Mental status: Baseline
== END 2025-04-08 13:30 | disposition home or self-care (01) ==
PROVIDERS: PCP Family Medicine; Visit Provider Student in an Organized Health Care Education/Training Program
PROC: (CPT 36561; principal; 2025-04-08 10:50)
DX: C34.82 Malignant neoplasm of overlapping sites of left bronchus and lung (principal); I10 Essential (primary) hypertension; K21.9 Gastro-esophageal reflux disease without esophagitis; M06.9 Rheumatoid arthritis, unspecified; Z79.891 Long term (current) use of opiate analgesic; I25.10 Atherosclerotic heart disease of native coronary artery without angina pectoris; E78.5 Hyperlipidemia, unspecified; J45.909 Unspecified asthma, uncomplicated; Z95.5 Presence of coronary angioplasty implant and graft; Z80.9 Family history of malignant neoplasm, unspecified; Z87.891 Personal history of nicotine dependence
CPT/HCPCS: 36561; 76000; 77001; C1788; J0690; J1644; J2250; J2405; J2704; J3010; J3490; J7030; J9999

== ENCOUNTER 2025-04-12 09:59 | Observation (INO) | payer OTHER, SELFPAY ==
[2025-04-12] VITALS (11 sets, daily range): BP systolic 118–138; BP diastolic 53–82; PULSE 63–97; RESP 16–18; TEMP 36.3–36.6; O2SAT 93–100; BMI 20.9
--- NOTE | 2025-04-12 10:17 | XRR_ITS ---
PROCEDURE INFORMATION: Exam: XR Chest Exam date and time: 04/12/2025 10:32 AM Age: 65 years old Clinical indication: Shortness of breath; Prior surgery; Surgery date: 6+ months; Surgery type: Port insertion, cardiac stent x 2; Additional info: SOB; Fever; Weakness; HX lung CA (current tx) TECHNIQUE: Imaging protocol: Radiologic exam of the chest. Views: 1 view. COMPARISON: CR XR chest 1V portable [id number] 03/19/2025 2:23 PM FINDINGS: Tubes, catheters and devices: Port a catheter terminating at the cavoatrial junction. Lungs: Right upper lung opacity is decreased. In the right upper lung there are linear opacities which may represent scar or atelectasis. Pleural spaces: Unremarkable. No pleural effusion. No pneumothorax. Heart/Mediastinum: Unremarkable. No cardiomegaly. Bones/joints: Scoliosis. XR/XR chest 1V portable [id number] IMPRESSION: Decreased opacities in the right upper lung.
--- NOTE | 2025-04-12 10:23 | ECG_ITS ---
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 Measurements Intervals [place]ony Rate: 88 P: 54 IA: 146 QRS: 2 QRSD: 78 T: 52 QT: 353 QTc: 429 Interpretive Statements SINUS RHYTHM NONSPECIFIC T-WAVE ABNORMALITY Compared to ECG 10/16/2024 11:56:57 Sinus bradycardia no longer present Electronically Signed On 04-12-2025 17:01:26 [employer] by Pasquale Colon M.D. [email or web address]
--- NOTE | 2025-04-12 10:29 | W.ED.FEVER ---
Documented by User: REINA Saravia 04/12/25 13:27 HPI - Fever General: Chief Complaint: Fever Stated Complaint: n/v/d; weakness Time Seen by Provider: 04/12/25 10:01 Source: patient Mode of arrival: EMS Limitations: no limitations History of Present Illness: Patient is a 65-year-old female who is presenting to the emergency department by ambulance for nausea vomiting diarrhea, overall weakness for the past few days. On the symptoms began, this patient has a history for small cell lung cancer and has been receiving chemotherapy regularly. Last had chemo on 04/06, first cycle of Imfinzi began on 03/30. She had been tolerating this well, has been taking medications to increase her white count states overall she had been doing well prior to when the symptoms began. She thinks that she has caught a virus, she has had symptoms of bodyaches, subjective fever at home which she has been taking Tylenol and is afebrile at this time, vomiting and diarrhea, nausea, and generalized abdominal pain where she states she just feels gassy. who is present states that she had an episode prior to coming in where she had seizure-like activity and was shaking and unresponsive for a second, no history of seizures. Appetite has been decreased, she is not endorsing any chest pain or shortness of breath. She did recently have a port placed on 04/08, there has been no complaints of pain or redness at this site to the right upper chest. She had labs last on 04/06 which were all within normal limits. Neutrophils have been within normal limits as well as her white count. Patient's oncologist is Dr. Bazan. elicited complaint: fever Pertinent past history: immunosuppression (Cancer on chemotherapy) Onset (ago): day(s) Context: on chemotherapy Associated symptoms: Reports abdominal pain, diarrhea, nausea and vomiting; Deny flank pain, chills, chest pain, dysuria or headache(s) Related Data Home Medications ?Medication ?Instructions ?Recorded ?Confirmed albuterol sulfate 90 mcg/actuation 2 puff inhalation Q6H PRN 11/22/20 04/07/25 aerosol inhaler (Ventolin HFA) Shortness Of Breath diazepam 5 mg tablet (Valium) 5 mg PO BID PRN Anxiety 11/02/22 04/07/25 metoprolol tartrate 25 mg tablet 25 mg PO DAILY 11/02/22 04/07/25 atorvastatin 10 mg tablet 10 mg PO DAILY 10/23/23 04/07/25 biotin 2,500 mcg capsule 5,000 mcg PO DAILY 10/16/24 04/07/25 duloxetine 60 mg capsule,delayed 60 mg PO QDAY 10/16/24 04/07/25 release magnesium 200 mg tablet 200 mg PO DAILY 03/16/25 04/07/25 multivitamin 1 tab PO DAILY 03/16/25 04/07/25 ondansetron HCl 8 mg tablet 8 mg PO Q8H 03/16/25 04/07/25 prochlorperazine maleate 10 mg 10 mg PO PRN PRN Nausea 03/16/25 04/07/25 capsule,extended release tizanidine 4 mg capsule 4 mg PO Q8H PRN Spasms 03/16/25 04/07/25 gummie 1 gummy PO PRN PRN appetite 04/02/25 04/07/25 sennosides 8.6 mg tablet (Senna 8.6 mg PO DAILY 04/02/25 04/07/25 Lax) Previous Rx's ?Medication ?Instructions ?Recorded isosorbide mononitrate 60 mg 60 mg PO DAILY #90 tabs 01/19/25 tablet,extended release 24 hr oxycodone 10 mg tablet 10 mg PO Q4H PRN pain 30 days #120 03/23/25 tabs pantoprazole 40 mg tablet,delayed 40 mg PO DAILY #30 tabs 04/06/25 release Allergies Allergy/AdvReac Type Severity Reaction Status Date / Time ciprofloxacin Allergy ALGY-Rash Verified 04/07/25 13:58 Review of Systems General: Reports: 10 or more systems reviewed and unremarkable except in HPI and below Const: Reports: fever(s), body aches, fatigue and malaise; Denies: chills Eyes: Denies: change in vision ENMT: Denies: throat pain, ear or mastoid pain or nasal discharge Card: Denies: chest pain, palpitations, swelling of feet/ankles or lightheadedness Resp: Denies: dyspnea, productive cough or wheezing GI: Reports: abdominal pain, nausea, vomiting and diarrhea; Denies: constipation : Denies: flank pain, difficulty voiding, dysuria or urinary frequency Musc: Denies: neck pain, back pain or joint pain Skin/Breast: Denies: rash Neuro: Reports: seizure-like activity; Denies: headache(s), numbness in extremities or weakness in extremities PFSH ED PFSH: Medical History Coronary artery disease GERD (gastroesophageal reflux disease) HTN (hypertension) Asthma Hyperlipidemia Surgical History History of coronary artery stent placement 2019 Family History Sister Asthma Mother Cancer Rheumatoid arthritis Family/Other Cancer Father Cancer Grandmother Stroke Social History Smoking and tobacco/nicotine status: former use of tobacco/nicotine Alcohol intake: current Alcohol intake frequency: holidays/special occasions only Substance/Drug Use: never Physical Exam Const: COMMON NORMALS: no acute distress, patient oriented x3 and no limitations GENERAL APPEARANCE: cooperative and well developed ORIENTATION/CONSCIOUSNESS: Yes awake, Yes oriented to person, Yes oriented to place and Yes oriented to time OTHER: Tired appearing but overall nontoxic HENMT: COMMON NORMALS: normocephalic, atraumatic and hearing grossly normal bilaterally HEAD & SCALP: normocephalic and atraumatic OTHER: Moist oral mucosa Eye: COMMON NORMALS: Equal, round and reactive pupils present, EOMs intact bilaterally and conjunctivae normal CONJUNCTIVA: Yes conjunctivae normal PUPIL: Yes Equal, round and reactive pupils present Neck/C-Spine: COMMON NORMALS: full ROM and supple Chest: OTHER: Port-A-Cath right anterior chest wall with no surrounding erythema, nontender to palpation Resp: COMMON NORMALS: normal respiratory effort, No retractions, No use of accessory muscles and clear to auscultation bilaterally AUSCULTATION: clear to auscultation bilaterally Cardio: COMMON NORMALS: regular rate, regular rhythm, No clicks present (Cardio), No murmurs present (Cardio) and No rub (Cardio) RATE: regular rate RHYTHM: regular rhythm GI: COMMON NORMALS: Normal to inspection, nondistended, normoactive bowel sounds present and Soft to palpation AUSCULTATION: Yes normoactive bowel sounds PALPATION: Yes Soft to palpation RECTAL EXAM: deferred OTHER: Diffuse nonspecific tender to palpation, no distention Extremity: COMMON NORMALS: normal to inspection, full ROM and capillary refill normal Neuro: COMMON NORMALS: patient oriented x3, moves all extremities, no focal motor deficits and no sensory deficits noted SENSORIUM/ORIENTATION: Yes oriented to person, Yes oriented to place and Yes oriented to time Skin: COMMON NORMALS: no rashes or lesions noted GENERAL SKIN EXAM: no rashes or lesions noted Course Vital Signs: Vital signs: Vital Signs Temperature 97.4 F L 04/12/25 10:01 Pulse Rate 93 04/12/25 12: Respiratory Rate 16 04/12/25 10:01 Blood Pressure 120/56 04/12/25 12: Pulse Oximetry 96 04/12/25 12: Oxygen Delivery Me thod Room Air 04/12/25 10:01 MDM - Fever Medical Decision Making Patient is chemotherapy patient seen by Dr. Mitchell, for history of small cell lung cancer. Presented complaints of nausea vomiting diarrhea since , as well as fevers at home. Was administered antipyretics prehospital and she has been afebrile here. Overall tired appearing but nontoxic, alert and oriented. Diffusely tender to palpation of the abdomen, no adventitious heart or lung sounds. No vomiting here but she has had copious diarrhea resulting in a positive C. difficile test, and CT of the abdomen confirming colitic changes consistent with C. difficile colitis status post chemotherapy. She had endorse some subjective shortness of breath so CT angio ordered ruling out any PE, there is decrease in the opacity to the right upper lung. She is on growth factor, and white count is elevated to 20.67 with left shift, however there are no discrepancies on her metabolic panel specifically her electrolytes are normal. Lactic acid is also normal. She is administered IV fluids and antiemetics here in the ED, admitted to Dr. Killian for observation and she will be started on p.o. fidaxomicin. Formed patient and family the room of this plan and they agree and all the questions and concerns addressed at this time. Dr. Francois put in admit orders. Lab Data 04/12/25 10:26 04/12/25 10:26 Radiology Impressions Chest X-Ray 04/12/25 10:17 IMPRESSION: Decreased opacities in the right upper lung. Chest/Abdomen/Pelvis CT 04/12/25 11:12 IMPRESSION: 1. No acute findings. 2. Stable right upper lobe nodules and lesions. 3. Ectasia of the ascending thoracic aorta. No dissection. IMPRESSION: 1. Diffuse colitis. 2. Other findings as detailed above. Laboratory Results WBC 20.67 10^3/uL (3.29-11.43) H 04/12/25 10:26 RBC 4.69 10^6/uL (3.85-5.65) 04/12/25 10:26 Hgb 13.10 g/dL (11.27-16.99) 04/12/25 10:26 Hct 39.8 % (36-47) 04/12/25 10:26 MCV 84.9 fl (85-98) L 04/12/25 10:26 MCH 27.9 pg (27-33) 04/12/25 10:26 MCHC 32.9 g/dL (30-55) 04/12/25 10:26 RDW 14.1 % (12.1-15.1) 04/12/25 10:26 Plt Count 71 10^3/cmm (157-399) L 04/12/25 10:26 MPV 10.0 fL (7.4-10.4) 04/12/25 10:26 Neut % (Auto) 63.8 % 04/12/25 10:26 Lymph % (Auto) 9.6 % 04/12/25 10:26 Burt % (Auto) 10.1 % 04/12/25 10:26 Eos % (Auto) 0.2 % 04/12/25 10:26 Baso % (Auto) 0.0 % 04/12/25 10:26 Neut # (Auto) 13.19 10^3/uL (1.8-7.7) H 04/12/25 10:26 Lymph # (Auto) 2.0 10^3/uL (0.8-4.8) 04/12/25 10:26 Burt # (Auto) 2.1 10^3/uL (0.2-0.9) H 04/12/25 10:26 Eos # (Auto) 0.0 10^3/uL (0.0-0.8) 04/12/25 10:26 Baso # (Auto) 0.0 10^3/uL (0.0-0.1) 04/12/25 10:26 Nucleated RBC % (auto) 0.1 % 04/12/25 10: Nucleated RBCs # 0.0 /100WBC 04/12/25 10:26 Sodium 140 mmol/L (136-145) 04/12/25 10:26 Potassium 3.9 mmol/L (3.5-5.1) 04/12/25 10:26 Chloride 99 mmol/L (98-107) 04/12/25 10:26 Carbon Dioxide 26 mmol/L (22-29) 04/12/25 10:26 Anion Gap 18.9 (5-19) 04/12/25 10:26 BUN 13 mg/dL (8-23) 04/12/25 10:26 Creatinine 0.6 mg/dL (0.5-0.9) 04/12/25 10:26 GFR Calculation 101.0 mL/min (90-130) 04/12/25 10:26 Glucose 100 mg/dL (65-115) 04/12/25 10:26 Calculated Osmolality 290 mOsm/kg (285-295) 04/12/25 10:26 Lactic Acid 1.4 mmol/L (0.5-2.2) 04/12/25 10:26 Calcium 9.6 mg/dL (8.5-10.5) 04/12/25 10:26 Magnesium 1.9 mg/dL (1.7-2.3) 04/12/25 10:26 Total Bilirubin 0.3 mg/dL (0.15-1.2) 04/12/25 10:26 AST 24 U/L (0-32) 04/12/25 10:26 ALT 22 U/L (0-33) 04/12/25 10:26 Alkaline Phosphatase 118 U/L (35-105) H 04/12/25 10:26 Total Protein 7.2 g/dL (6.6-8.7) 04/12/25 10:26 Albumin 4.2 g/dL (3.5-5.2) 04/12/25 10:26 Globulin 3.0 g/dL (1.3-4.6) 04/12/25 10:26 C. difficile (PCR) Positive (Negative) H 04/12/25 11:56 Influenza A (PCR) Negative (Negative) 04/12/25 10:26 Influenza Type B (PCR) Negative (Negative) 04/12/25 10:26 RSV (PCR) Negative (Negative) 04/12/25 10:26 SARS-CoV-2 (PCR) Negative (Negative) 04/12/25 10:26 All radiology interpretation(s) finalized by discharge Discharge Plan Discharge Patient Disposition: Placed in Observation Clinical Impression: C. difficile colitis Coding Level of Care Code ED Sales Support Assistant for Chg Fwd Documented by User: Sarah Francois MD 04/12/25 13:42 HPI - Fever General: Chief Complaint: Fever Stated Complaint: n/v/d; weakness Time Seen by Provider: 04/12/25 10:01 Related Data Home Medications ?Medication ?Instructions ?Recorded ?Confirmed albuterol sulfate 90 mcg/actuation 2 puff inhalation Q6H PRN 11/22/20 04/07/25 aerosol inhaler (Ventolin HFA) Shortness Of Breath diazepam 5 mg tablet (Valium) 5 mg PO BID PRN Anxiety 11/02/22 04/07/25 metoprolol tartrate 25 mg tablet 25 mg PO DAILY 11/02/22 04/07/25 atorvastatin 10 mg tablet 10 mg PO DAILY 10/23/23 04/07/25 biotin 2,500 mcg capsule 5,000 mcg PO DAILY 10/16/24 04/07/25 duloxetine 60 mg capsule,delayed 60 mg PO QDAY 10/16/24 04/07/25 release magnesium 200 mg tablet 200 mg PO DAILY 03/16/25 04/07/25 multivitamin 1 tab PO DAILY 03/16/25 04/07/25 ondansetron HCl 8 mg tablet 8 mg PO Q8H 03/16/25 04/07/25 prochlorperazine maleate 10 mg 10 mg PO PRN PRN Nausea 03/16/25 04/07/25 capsule,extended release tizanidine 4 mg capsule 4 mg PO Q8H PRN Spasms 03/16/25 04/07/25 gummie 1 gummy PO PRN PRN appetite 04/02/25 04/07/25 sennosides 8.6 mg tablet (Senna 8.6 mg PO DAILY 04/02/25 04/07/25 Lax) Previous Rx's ?Medication ?Instructions ?Recorded isosorbide mononitrate 60 mg 60 mg PO DAILY #90 tabs 01/19/25 tablet,extended release 24 hr oxycodone 10 mg tablet 10 mg PO Q4H PRN pain 30 days #120 03/23/25 tabs pantoprazole 40 mg tablet,delayed 40 mg PO DAILY #30 tabs 04/06/25 release Allergies Allergy/AdvReac Type Severity Reaction Status Date / Time ciprofloxacin Allergy ALGY-Rash Verified 04/07/25 13:58 PFSH ED PFSH: Medical History Coronary artery disease GERD (gastroesophageal reflux disease) HTN (hypertension) Asthma Hyperlipidemia Surgical History History of coronary artery stent placement 2019 Family History Sister Asthma Mother Cancer Rheumatoid arthritis Family/Other Cancer Father Cancer Grandmother Stroke Social History Smoking and tobacco/nicotine status: former use of tobacco/nicotine Alcohol intake: current Alcohol intake frequency: holidays/special occasions only Substance/Drug Use: never Course Vital Signs: Vital signs: Vital Signs Temperature 97.4 F L 04/12/25 10:01 Pulse Rate 93 04/12/25 12:26 Respiratory Rate 16 04/12/25 10:01 Blood Pressure 120/56 04/12/25 12:26 Pulse Oximetry 96 04/12/25 12:26 Oxygen Delivery Me thod Room Air 04/12/25 10:01 MDM - Fever Medical Decision Making Patient is chemotherapy patient seen by Dr. Mitchell, for history of small cell lung cancer. Presented complaints of nausea vomiting diarrhea since , as well as fevers at home. Was administered antipyretics prehospital and she has been afebrile here. Overall tired appearing but nontoxic, alert and oriented. Diffusely tender to palpation of the abdomen, no adventitious heart or lung sounds. No vomiting here but she has had copious diarrhea resulting in a positive C. difficile test, and CT of the abdomen confirming colitic changes consistent with C. difficile colitis status post chemotherapy. She had endorse some subjective shortness of breath so CT angio ordered ruling out any PE, there is decrease in the opacity to the right upper lung. She is on growth factor, and white count is elevated to 20.67 with left shift, however there are no discrepancies on her metabolic panel specifically her electrolytes are normal. Lactic acid is also normal. She is administered IV fluids and antiemetics here in the ED, admitted to Dr. Killian for observation and she will be started on p.o. fidaxomicin. Formed patient and family the room of this plan and they agree and all the questions and concerns addressed at this time. Dr. Francois put in admit orders. Saw this patient above midlevel agree with history and physical will admit at this time for observation. Lab Data 04/12/25 10:26 04/12/25 10:26 Radiology Impressions Chest X-Ray 04/12/25 10:17 IMPRESSION: Decreased opacities in the right upper lung. Chest/Abdomen/Pelvis CT 04/12/25 11:12 IMPRESSION: 1. No acute findings. 2. Stable right upper lobe nodules and lesions. 3. Ectasia of the ascending thoracic aorta. No dissection. IMPRESSION: 1. Diffuse colitis. 2. Other findings as detailed above. Laboratory Results WBC 20.67 10^3/uL (3.29-11.43) H 04/12/25 10: RBC 4.69 10^6/uL (3.85-5.65) 04/12/25 10:26 Hgb 13.10 g/dL (11.27-16.99) 04/12/25 10:26 Hct 39.8 % (36-47) 04/12/25 10: MCV 84.9 fl (85-98) L 04/12/25 10:26 MCH 27.9 pg (27-33) 04/12/25 10:26 MCHC 32.9 g/dL (30-55) 04/12/25 10:26 RDW 14.1 % (12.1-15.1) 04/12/25 10:26 Plt Count 71 10^3/cmm (157-399) L 04/12/25 10:26 MPV 10.0 fL (7.4-10.4) 04/12/25 10:26 Neut % (Auto) 63.8 % 04/12/25 10:26 Lymph % (Auto) 9.6 % 04/12/25 10:26 Burt % (Auto) 10.1 % 04/12/25 10:26 Eos % (Auto) 0.2 % 04/12/25 10:26 Baso % (Auto) 0.0 % 04/12/25 10:26 Neut # (Auto) 13.19 10^3/uL (1.8-7.7) H 04/12/25 10:26 Lymph # (Auto) 2.0 10^3/uL (0.8-4.8) 04/12/25 10:26 Burt # (Auto) 2.1 10^3/uL (0.2-0.9) H 04/12/25 10:26 Eos # (Auto) 0.0 10^3/uL (0.0-0.8) 04/12/25 10:26 Baso # (Auto) 0.0 10^3/uL (0.0-0.1) 04/12/25 10:26 Nucleated RBC % (auto) 0.1 % 04/12/25 10:26 Nucleated RBCs # 0.0 /100WBC 04/12/25 10:26 Sodium 140 mmol/L (136-145) 04/12/25 10:26 Potassium 3.9 mmol/L (3.5-5.1) 04/12/25 10:26 Chloride 99 mmol/L (98-107) 04/12/25 10:26 Carbon Dioxide 26 mmol/L (22-29) 04/12/25 10:26 Anion Gap 18.9 (5-19) 04/12/25 10:26 BUN 13 mg/dL (8-23) 04/12/25 10:26 Creatinine 0.6 mg/dL (0.5-0.9) 04/12/25 10:26 GFR Calculation 101.0 mL/min (90-130) 04/12/25 10:26 Glucose 100 mg/dL (65-115) 04/12/25 10:26 Calculated Osmolality 290 mOsm/kg (285-295) 04/12/25 10:26 Lactic Acid 1.4 mmol/L (0.5-2.2) 04/12/25 10:26 Calcium 9.6 mg/dL (8.5-10.5) 04/12/25 10:26 Magnesium 1.9 mg/dL (1.7-2.3) 04/12/25 10:26 Total Bilirubin 0.3 mg/dL (0.15-1.2) 04/12/25 10:26 AST 24 U/L (0-32) 04/12/25 10:26 ALT 22 U/L (0-33) 04/12/25 10:26 Alkaline Phosphatase 118 U/L (35-105) H 04/12/25 10:26 Total Protein 7.2 g/dL (6.6-8.7) 04/12/25 10:26 Albumin 4.2 g/dL (3.5-5.2) 04/12/25 10:26 Globulin 3.0 g/dL (1.3-4.6) 04/12/25 10:26 C. difficile (PCR) Positive (Negative) H 04/12/25 11:56 Influenza A (PCR) Negative (Negative) 04/12/25 10:26 Influenza Type B (PCR) Negative (Negative) 04/12/25 10:26 RSV (PCR) Negative (Negative) 04/12/25 10:26 SARS-CoV-2 (PCR) Negative (Negative) 04/12/25 10:26 Discharge Plan Discharge Patient Disposition: Placed in Observation Clinical Impression: C. difficile colitis Coding Level of Care Code ED Sales Support Assistant for Danielle Pickett
[2025-04-12] MEDS: metoclopramide 5 mg/mL SDV 2 mL 10 MG IVP (10:34)
[2025-04-12 10:35] LABS: Hematocrit 39.8 % (36-47); Hemoglobin 13.10 g/dL (11.27-16.99); Mean Corpuscular HGB Conc 32.9 g/dL (30-55); Mean Corpuscular Hemoglobin 27.9 pg (27-33); Mean Corpuscular Volume 84.9 fl (85-98); Nucleated Red Blood Cells % 0.1 %; Platelet Count 71 10^3/cmm (157-399); Red Blood Count 4.69 10^6/uL (3.85-5.65); White Blood Count 20.67 10^3/uL (3.29-11.43)
[2025-04-12 10:50] LABS: Alanine Aminotransferase 22 U/L (0-33); Albumin Level 4.2 g/dL (3.5-5.2); Alkaline Phosphatase 118 U/L (35-105); Anion Gap 18.9 (5-19); Aspartate Amino Transferase 24 U/L (0-32); Blood Urea Nitrogen 13 mg/dL (8-23); Calcium 9.6 mg/dL (8.5-10.5); Carbon Dioxide 26 mmol/L (22-29); Chloride 99 mmol/L (98-107); Globulin 3.0 g/dL (1.3-4.6); Glucose 100 mg/dL (65-115); Magnesium 1.9 mg/dL (1.7-2.3); Osmolality Calculated 290 mOsm/kg (285-295); Potassium 3.9 mmol/L (3.5-5.1); Sodium 140 mmol/L (136-145); Total Protein 7.2 g/dL (6.6-8.7)
[2025-04-12 10:51] LABS: Lactic Sepsis W/Reflex 1.4 mmol/L (0.5-2.2)
[2025-04-12 10:57] LABS: Slide Review Slide Review Perform
--- NOTE | 2025-04-12 11:12 | CTR_ITS ---
PROCEDURE INFORMATION: Exam: CTA Chest With Contrast Exam date and time: 04/12/2025 11:59 AM Age: 65 years old Clinical indication: Fever; Shortness of breath; Additional info: Short of breath, HX of cancer, fever TECHNIQUE: Imaging protocol: Computed tomographic angiography of the chest with contrast. Exam focused on the arteries. 3D rendering (Not supervised by radiologist): MIP and/or 3D reconstructed images were created by the technologist. Radiation optimization: All CT scans at this facility use at least one of these dose optimization techniques: automated exposure control; mA and/or kV adjustment per patient size (includes targeted exams where dose is matched to clinical indication); or iterative reconstruction. Contrast material: OMNI 350; Contrast volume: 100 ml; Contrast route: INTRAVENOUS (IV); COMPARISON: PT PET skull to thigh INIT [id number] 04/10/2025 4:54 PM RADIATION DOSE METRICS: Total DLP (mGy-cm): 470.4 FINDINGS: Tubes, catheters and devices: Zahida catheter. Pulmonary arteries: Normal. No pulmonary emboli. Aorta: The ascending thoracic aorta measures up to 4.2 cm in caliber. Lungs: Ovoid mass in the right upper lobe measures 3 x 1.2 cm without appreciable change. In the more central right upper lobe a 1.5 x 1.2 cm nodule is again noted without definite change allowing for technical differences. Irregular nodular densities at the right apex are again seen, measuring up to 1.3 cm without change. Pleural spaces: Unremarkable. No pneumothorax. No pleural effusion. Heart: Unremarkable. No cardiomegaly. No pericardial effusion. Lymph nodes: Unremarkable. No enlarged lymph nodes. Bones/joints: Unremarkable. No acute fracture. Soft tissues: Unremarkable. PROCEDURE INFORMATION: Exam: CT Abdomen And Pelvis With Contrast Exam date and time: 04/12/2025 11:59 AM Age: 65 years old Clinical indication: Fever; Shortness of breath; Additional info: Short of breath, HX of cancer, fever TECHNIQUE: Imaging protocol: Computed tomography of the abdomen and pelvis with contrast. Radiation optimization: All CT scans at this facility use at least one of these dose optimization techniques: automated exposure control; mA and/or kV adjustment per patient size (includes targeted exams where dose is matched to clinical indication); or iterative reconstruction. Contrast material: OMNI 350; Contrast volume: 100 ml; Contrast route: INTRAVENOUS (IV); COMPARISON: PT PET skull to thigh INIT [id number] 04/10/2025 4:54 PM RADIATION DOSE METRICS: Total DLP (mGy-cm): 470.4 FINDINGS: Liver: There are a few punctate low-density foci in the liver, too small to characterize. Gallbladder and biliary ducts: Normal. No calcified stones. No ductal dilation. Pancreas: Normal. No ductal dilation. Spleen: Normal. No splenomegaly. Adrenal glands: Slight prominence of bilateral adrenal glands with maintenance of adrenal morphology. This is stable. Kidneys and ureters: Normal. No hydronephrosis. Stomach and bowel: Diffuse colonic wall thickening of [id number] severity, greatest in the sigmoid colon and transverse colon consistent with colitis. Appendix: No evidence of appendicitis. Intraperitoneal space: Unremarkable. No free air. No significant fluid collection. Vasculature: Unremarkable. No abdominal aortic aneurysm. Lymph nodes: Unremarkable. No enlarged lymph nodes. Urinary bladder: Unremarkable as visualized. Reproductive: Unremarkable as visualized. Bones/joints: Unremarkable. No acute fracture. Soft tissues: Unremarkable. CT/CT angio chest w abd pel w con IMPRESSION: 1. No acute findings. 2. Stable right upper lobe nodules and lesions. 3. Ectasia of the ascending thoracic aorta. No dissection. IMPRESSION: 1. Diffuse colitis. 2. Other findings as detailed above.
[2025-04-12 11:14] LABS: Respiratory Syncytial Virus Ce NEGATIVE (Negative); SARS-CoV-2 PCR NEGATIVE (Negative)
[2025-04-12] MEDS: iohexol 350 mg/mL 500 mL Btl (per mL) IV (12:04)
[2025-04-12 13:05] LABS: C.Diff PCR (Lab) POSITIVE (Negative)
[2025-04-12] MEDS: ondansetron 2 mg/ML SDV 2 mL 4 MG IVP (13:51)
--- NOTE | 2025-04-12 14:27 | PM.HP ---
Providers/Chief Complaint Admitting Physician: Dr. Killian Primary Care Provider: Johnson Tucker Chief Complaint: n/v/d; weakness History of Present Illness Amna Rangel is a 65 year old female w/ pmhx of CAD, HLD, HTN, PUD, GI bleed,GERD, asthma, and recently dx with SCC(receiving chemotherapy, last Chemo 04/06, first cycle of Imfinzi began 03/30) - follows Dr. Bazan outpatient. Patient presents today with c/o N/V/D and increased weakness x3 days. Patient reports associated s/s of ABD pain, body aches, fever, and decreased appetite. Patient reports attempted alleviating factor of tylenol at home for fevers. noted to be at bedside during time of my evaluation. He reports patient had an episode prior to coming to ED that presented like seizure activity, she was shaking and unresponsive for a second no known history of seizures. Patient to be admitted to hospitalist services for continued medical management and care. While in ED a CBC, CMP, Flu/RSV/COVID , and C. difficile was collected and results as follows: WBC 20.67, Neut 13.19, [place] 2.1, Hgb 13.1, HCT 39.8, plt 71. CMP unremarkable. Flu/RSV/COVID was negative. C. difficile positive. While in ED patient received following medications: 2L NS bolus, Reglan 10 mg IVP, Zofran 4 mg IVP, Vancomycin 125mg PO Review of Systems General: Reports: 10 or more systems reviewed and unremarkable except in HPI and below Const: Reports: fever(s) and change in appetite Card: Denies: chest pain, palpitations, swelling of feet/ankles or lightheadedness Resp: Reports: dyspnea GI: Reports: abdominal pain, nausea, vomiting and diarrhea Medications/Allergies Home Medications ?Medication ?Instructions ?Recorded ?Confirmed ?Last Taken ?Type albuterol sulfate 90 mcg/actuation 2 puff inhalation Q6H PRN 11/22/20 04/07/25 Unknown History aerosol inhaler (Ventolin HFA) Shortness Of Breath diazepam 5 mg tablet (Valium) 5 mg PO BID PRN Anxiety 11/02/22 04/12/25 04/11/25 History 2.5 metoprolol tartrate 25 mg tablet 25 mg PO DAILY 11/02/22 04/12/2504/11/25 History atorvastatin 10 mg tablet 10 mg PO DAILY 10/23/23 04/12/25 04/11/25 History biotin 2,500 mcg capsule 5,000 mcg PO DAILY 10/16/24 04/07/25 Unknown History duloxetine 60 mg capsule,delayed 60 mg PO QDAY 10/16/24 04/12/25 04/11/25 History release isosorbide mononitrate 60 mg 60 mg PO DAILY #90 tabs 01/19/25 04/12/25 04/11/25 Rx tablet,extended release 24 hr magnesium 200 mg tablet 200 mg PO DAILY 03/16/25 04/12/25 04/11/25 History multivitamin 1 tab PO DAILY 03/16/25 04/12/25 04/11/25 History ondansetron HCl 8 mg tablet 8 mg PO Q8H PRN nausea/ vomiting 03/16/25 04/12/25 Unknown History prochlorperazine maleate 10 mg See Rx Instructions .Route 03/16/25 04/12/25 Unknown History capsule,extended release .COMPLEX PRN Nausea tizanidine 4 mg capsule 4 mg PO Q8H PRN Spasms 03/16/25 04/12/25 04/07/25 History oxycodone 10 mg tablet 10 mg PO Q4H PRN pain 30 days #120 03/23/25 04/12/25 04/03/25 Rx tabs gummie 1 gummy PO PRN PRN appetite 04/02/25 04/07/25 04/07/25 History sennosides 8.6 mg tablet (Senna 8.6 mg PO DAILY 04/02/25 04/07/25 04/07/25 History Lax) pantoprazole 40 mg tablet,delayed 40 mg PO DAILY #30 tabs 04/06/25 04/12/25 04/11/25 Rx release Allergies Allergy/AdvReac Type Severity Reaction Status Date / Time ciprofloxacin Allergy ALGY-Rash Verified 04/12/25 14:27 PFSH Acute PFSH: Medical History (Updated 04/12/25 @ 15:31 by Melvi Mccall NP) Coronary artery disease Gastroesophageal reflux disease without esophagitis HTN (hypertension) Asthma Hyperlipidemia Surgical History (Updated 04/12/25 @ 15:27 by Melvi Mccall NP) History of coronary artery stent placement 2019 Family History Sister Asthma Mother Cancer Rheumatoid arthritis Family/Other Cancer Father Cancer Grandmother Stroke Social History Smoking and tobacco/nicotine status: former use of tobacco/nicotine Alcohol intake: current Alcohol intake frequency: holidays/special occasions only Substance/Drug Use: never Vitals/I&O/Wt Last Vital Signs Temp 97.4 F L 04/12/25 10:01 Pulse 95 04/12/25 14:00 Resp 16 04/12/25 10:01 BP 128/57 04/12/25 14:00 Pulse Ox 95 04/12/25 14:00 O2 Del Method Room Air 04/12/25 13:30 04/11/25 04/12/25 04/12/25 22:59 06:59 14:59 Intake Total 1000 / 1000 Balance 1000 / 1000 Weight last 48 hrs Weight 45.359 kg Physical Exam Narrative: General: A&OX4, no appear distress currently. HEENT: Normo-cephalic, atraumatic, grossly unremarkable exam Cardio: NSR, normal S1-S2 w/o any murmurs, rubs, or gallops and JVD normal Respiratory: Clear to bilateral upper and lower lobes on auscultation w/o any wheezes, stridor, rhonchi GI: Abd tender, N/V/D, non-distended, normo-active bowel sounds present Neuro: Moves all extremities, no sensory deficits, Normal speech Behavior: Appropriate and cooperative Extremities: Adequate palpable pulses. No clubbing, cyanosis or edema, Full ROM Data 04/12/25 10:26 04/12/25 10:26 Other Labs: 04/12: Chest/Abd/Pelvis: Reviewed and results as follows: No acute findings. Stable right upper lobe nodules and lesions. Ectasia of the ascending thoracic aorta. No dissection. 04/12: CXR: Reviewed and results as follows: Decreased opacities in the right upper lung. Micro: Microbiology 04/12/25 10:26 Blood Culture - Preliminary Blood SPECIMEN COLLECTED 04/12/25 10:26 Blood Culture - Preliminary Blood SPECIMEN COLLECTED A&P Assessment and plan 1. C. difficile colitis: 2. Small cell lung cancer, overlapping sites of left lun. Gastroesophageal reflux disease without esophagitis: 4. Primary hypertension: 5. Mixed hyperlipidemia: Plan: C-Diff, Colitis N/V/D - Contact isolation and strict hand hygiene - Monitor WBC, stool frequency, and abdominal distention daily, - avoid antimotility agents - continue fidaxomicin 200 mg - LR at 50ml/hr - Replace electrolytes as indicated - Zofran 4 mg PRN for nausea - Advance diet as tolerated, start clear liquids - Strict I's and O's, document stool output. - Observe for worsening tenderness, distention or leukocytosis-(concerns for toxic megacolon) Small Cell Carcinoma - Follows Dr. Bazan outpatient - Receiving chemotherapy, last Chemo 04/06, first cycle of Imfinzi began 03/30 CAD HLD - s/p stent placement (2018) - Continue home medication atorvastatin 10 mg PO dly - Lipid panel ordered, pending. HTN - Continue home medication: isosorbide mononitrate ER 60 mg PO, metoprolol tartrate 25mg PO dly PUD Hx GI bleed GERD - Continue Protonix 40 mg IVP BID CODE STATUS: Full Code GI prophylaxis: Protonix 40mg IVP twice daily VTE prophylaxis: SCDs, hold lovenox/heparin as Plt count 71- monitor PDMP PDMP Reviewed: Not Reviewed Attestations Medical Necessity Statement*: Admitted under observation status. Given complexity of patient's presentation, co-morbid conditions, C-diff tx, and required intensity of treatment, a hospitalization exceeding two midnights is anticipated. and High Time for a total of 77 minutes, includes reviewing past or interval history, examining/interviewing patient, placing orders, counseling patient/family/other support, updating patient/family/other support, discussing plan of care with staff, communicating with other healthcare providers, documenting encounter and coordinating care Diagnoses C. difficile colitis A04.72 Small cell lung cancer, overlapping sites of left lung C34.82 Gastroesophageal reflux disease without esophagitis K21.9 Esophagitis presence: without esophagitis Primary hypertension I10 Hypertension type: primary hypertension Mixed hyperlipidemia E78.2 Hyperlipidemia type: mixed hyperlipidemia
[2025-04-12 14:35] LABS: Clostridioides Difficile Toxin POSITIVE (Negative)
--- NOTE | 2025-04-12 15:08 | PC.NURSE ---
Patient transferred from ED to [facility] via a bed at 1500.
[2025-04-12 15:17] LABS: Glucose Urine UA Negative (Normal); Nitrate Urine Negative (Negative)
[2025-04-12 15:22] LABS: Add Urine Microscopic? YES
[2025-04-12 15:37] LABS: Specific Gravity, Urine >= 1.099 (1.005-1.030); UA Slide Review UA Slide Review Perf
[2025-04-12] MEDS: pantoprazole 40 mg SDV IVP (17:08)
[2025-04-13] VITALS: BP 143/71; PULSE 95; RESP 24; TEMP 36.4; O2SAT 97
[2025-04-13 03:44] LABS: Hematocrit 28.9 % (36-47); Hemoglobin 9.90 g/dL (11.27-16.99); Mean Corpuscular HGB Conc 34.3 g/dL (30-55); Mean Corpuscular Hemoglobin 29.1 pg (27-33); Mean Corpuscular Volume 85.0 fl (85-98); Nucleated Red Blood Cells % 0.2 %; Platelet Count 69 10^3/cmm (157-399); Red Blood Count 3.40 10^6/uL (3.85-5.65); White Blood Count 19.23 10^3/uL (3.29-11.43)
[2025-04-13 04:00] VITALS: BP 133/60; PULSE 88; RESP 18; TEMP 37.2; O2SAT 90
[2025-04-13 04:17] LABS: Alanine Aminotransferase 13 U/L (0-33); Albumin Level 3.1 g/dL (3.5-5.2); Alkaline Phosphatase 95 U/L (35-105); Anion Gap 12.2 (5-19); Aspartate Amino Transferase 17 U/L (0-32); Blood Urea Nitrogen 8 mg/dL (8-23); Calcium 8.4 mg/dL (8.5-10.5); Carbon Dioxide 26 mmol/L (22-29); Chloride 106 mmol/L (98-107); Globulin 2.1 g/dL (1.3-4.6); Glucose 87 mg/dL (65-115); Magnesium 1.7 mg/dL (1.7-2.3); Osmolality Calculated 290 mOsm/kg (285-295); Potassium 3.2 mmol/L (3.5-5.1); Sodium 141 mmol/L (136-145); Total Protein 5.2 g/dL (6.6-8.7)
[2025-04-13] MEDS: pantoprazole 40 mg SDV IVP (04:42)
[2025-04-13] MEDS: ATORVASTATIN 10 MG TABLET PO (04:42)
[2025-04-13 07:38] VITALS: BP 98/61; PULSE 73; RESP 13; TEMP 36.8; O2SAT 97
[2025-04-13] MEDS: ondansetron 2 mg/ML SDV 2 mL 4 MG IVP (08:25)
[2025-04-13 08:30] VITALS: RESP 21; O2SAT 98
[2025-04-13] MEDS: oxyCODONE 5 mg IR Tab/Cap 10 MG PO (08:30)
--- NOTE | 2025-04-13 08:42 | PC.CHAP ---
Pastoral Care Encounter/Spiritual Assessment Type of Contact [] Declined commercial mortgage broker visit [] Patient/Family/Request visit [] Outpatient visit [] Follow-up visit [] Physician referral [] Code/Alert [x] Routine visit [] Staff referral [] Actively dying [] Patient sleeping [] Family support [] [] Out of room [] Palliative care [] [] Receiving care in room [] Pre-surgical visit [] Trauma [] Long length of stay [] ICU visit [] Other: Relational/Emotional Strength [] Patient feels connected with others/family/visitors/staff [] Distress [] Loneliness/isolation [] Abandonment Spirituality of Patient [] Person of [place] [] Attends [employer] of their [place] [] Believes in Prayer [] Reads Bible or Christianity materials [] There are Spiritual issues to be addressed Entry Processor Interventions [x] Prayer [] Active listening [] Non-anxious presence [] Spiritual/emotional support [] Crisis/trauma care [] Spiritual counseling [] Bereavement support [] Provided bereavement packet [] Provided Bible/devotional materials [] Provided toy/stuffed animal, coloring book to patient or family member [] Provided Communion [] Anointing/[place] [] Salvation [] Completed spiritual assessment [] Other: Impact on Illness or Injury [] Angry [] Fearful [] Anxious [] Often cries [] Exhaustion [] Unable to work [] Unable to attend samaritan [] Unable to walk/stand [] Unable to read [] Unable to drive [] Unable to eat/drink [] Unable to sleep [] Unable to be with family [] Patient intubated [] Other: Summary precaution Time spent with patient
--- NOTE | 2025-04-13 09:08 | PM.DCS ---
Discharge Providers Date of Admission: 04/12/25 13:25 Date of Discharge: April 13, 2025 Attending Provider at Admission: Hamilton Killian Attending Provider at Discharge: Kalpana Baird NP Primary Care Provider: Johnson Tucker Diagnoses at Discharge Discharge Diagnosis 1. C. difficile colitis: 2. Small cell lung cancer, overlapping sites of left lun. Gastroesophageal reflux disease without esophagitis: 4. Primary hypertension: 5. Mixed hyperlipidemia: Reason for Visit Reason for Visit: n/v/d; weakness Brief History: Admission: Amna Rangel is a 65 year old female w/ pmhx of CAD, HLD, HTN, PUD, GI bleed,GERD, asthma, and recently dx with SCC(receiving chemotherapy, last Chemo 04/06, first cycle of Imfinzi began 03/30) - follows Dr. Bazna outpatient. Patient presents today with c/o N/V/D and increased weakness x3 days. Patient reports associated s/s of ABD pain, body aches, fever, and decreased appetite. Patient reports attempted alleviating factor of tylenol at home for fevers. noted to be at bedside during time of my evaluation. He reports patient had an episode prior to coming to ED that presented like seizure activity, she was shaking and unresponsive for a second no known history of seizures. Patient to be admitted to hospitalist services for continued medical management and care. While in ED a CBC, CMP, Flu/RSV/COVID , and C. difficile was collected and results as follows: WBC 20.67, Neut 13.19, [place] 2.1, Hgb 13.1, HCT 39.8, plt 71. CMP unremarkable. Flu/RSV/COVID was negative. C. difficile positive. While in ED patient received following medications: 2L NS bolus, Reglan 10 mg IVP, Zofran 4 mg IVP, Vancomycin 125mg PO. Hospital Course Hospital Course C-Diff, Colitis N/V/D - Contact isolation and strict hand hygiene - Monitor WBC, stool frequency, and abdominal distention daily, - Improved WBC and tolerating diet at discharge - avoid antimotility agents - continue fidaxomicin 200 mg - LR at 50ml/hr - Replace electrolytes as indicated - Zofran 4 mg PRN for nausea - Advance diet as tolerated, start clear liquids - Strict I's and O's, document stool output. - Improved symptoms, no abdominal pain Small Cell Carcinoma - Follows Dr. Bazan outpatient - follow up later today - Receiving chemotherapy, last Chemo 04/06, first cycle of Imfinzi began 03/30 CAD HLD - s/p stent placement (2019) - Continue home medication atorvastatin 10 mg PO dly - Lipid panel HTN - Continue home medication: isosorbide mononitrate ER 60 mg PO, metoprolol tartrate 25mg PO dly PUD Hx GI bleed GERD - Continue Protonix 40 mg IVP BID Discharge: Discharges home in stable condition. No nausea/vomiting at discharge. Patient to continue Fidaxomicin for a total of 10 days and anti-emetics PRN. Patient and spouse advised to continue good oral hydration techniques and to resume home medications as previously prescribed. Patient advised to follow soft bland diet, to follow-up with oncologist about compatible medications such as probiotics if able. Advise follow-up with primary care provider in 1 to 2 days and oncologist later today. All questions and concerns addressed with the patient and her spouse at discharge. Physical Exam Narrative: General: A&OX4, no appear distress currently. HEENT: Normo-cephalic, atraumatic, grossly unremarkable exam Cardio: NSR, normal S1-S2 w/o any murmurs, rubs, or gallops and JVD normal Respiratory: Clear to bilateral upper and lower lobes on auscultation w/o any wheezes, stridor, rhonchi GI: non-tender, non-distended, normo-active bowel sounds present Neuro: Moves all extremities, no sensory deficits, Normal speech Behavior: Appropriate and cooperative Extremities: Adequate palpable pulses. No clubbing, cyanosis or edema, Full ROM Discharge Data Studies Completed and Pending Completed Studies During Hospitalization Category Date Time Status CT Angio Chest + Abdomen Pelvis w/ contrast; 11059 + Cat Scan 04/12/25 11:12 Completed 78397 Stat XR chest 1V portable [id number] Stat Exams 04/12/25 10:17 Completed Pending at discharge Category Date Time Status Blood Culture Stat Lab 04/12/25 10:26 Results Complete Blood Count w/Auto AM LABS Lab 04/14/25 04:00 Ordered Complete Blood Count w/Auto AM LABS Lab 04/15/25 04:00 Ordered Comprehensive Metabolic Panel AM LABS Lab 04/14/25 04:00 Ordered Comprehensive Metabolic Panel AM LABS Lab 04/15/25 04:00 Ordered Magnesium AM LABS Lab 04/14/25 04:00 Ordered Magnesium AM LABS Lab 04/15/25 04:00 Ordered Occult Blood Stool [Immunochemical Fecal OCB] Routine Lab 04/13/25 07:25 Uncollected Urine Culture Stat Lab 04/12/25 15:08 Received Radiology Impressions Chest X-Ray 04/12/25 10:17 IMPRESSION: Decreased opacities in the right upper lung. Chest/Abdomen/Pelvis CT 04/12/25 11:12 IMPRESSION: 1. No acute findings. 2. Stable right upper lobe nodules and lesions. 3. Ectasia of the ascending thoracic aorta. No dissection. IMPRESSION: 1. Diffuse colitis. 2. Other findings as detailed above. Laboratory Results WBC 19.23 10^3/uL (3.29-11.43) H 04/13/25 02:18 RBC 3.40 10^6/uL (3.85-5.65) L 04/13/25 02:18 Hgb 9.90 g/dL (11.27-16.99) L 04/13/25 02:18 Hct 28.9 % (36-47) L 04/13/25 02:18 MCV 85.0 fl (85-98) 04/13/25 02:18 MCH 29.1 pg (27-33) 04/13/25 02:18 MCHC 34.3 g/dL (30-55) 04/13/25 02:18 RDW 14.2 % (12.1-15.1) 04/13/25 02:18 Plt Count 69 10^3/cmm (157-399) L 04/13/25 02:18 MPV 9.7 fL (7.4-10.4) 04/13/25 02:18 Neut % (Auto) 58.8 % 04/13/25 02:18 Lymph % (Auto) 13.1 % 04/13/25 02:18 [place] % (Auto) 10.8 % 04/13/25 02:18 Eos % (Auto) 0.3 % 04/13/25 02:18 Baso % (Auto) 0.9 % 04/13/25 02:18 Neut # (Auto) 11.33 10^3/uL (1.8-7.7) H 04/13/25 02:18 Lymph # (Auto) 2.5 10^3/uL (0.8-4.8) 04/13/25 02:18 [place] # (Auto) 2.1 10^3/uL (0.2-0.9) H 04/13/25 02:18 Eos # (Auto) 0.1 10^3/uL (0.0-0.8) 04/13/25 02:18 Baso # (Auto) 0.2 10^3/uL (0.0-0.1) H 04/13/25 02:18 Nucleated RBC % (auto) 0.2 % 04/13/25 02:18 Nucleated RBCs # 0.0 /100WBC 04/13/25 02:18 Sodium 141 mmol/L (136-145) 04/13/25 02:18 Potassium 3.2 mmol/L (3.5-5.1) L 04/13/25 02:18 Chloride 106 mmol/L (98-107) 04/13/25 02:18 Carbon Dioxide 26 mmol/L (22-29) 04/13/25 02:18 Anion Gap 12.2 (5-19) 04/13/25 02:18 BUN 8 mg/dL (8-23) 04/13/25 02:18 Creatinine 0.5 mg/dL (0.5-0.9) 04/13/25 02:18 GFR Calculation 124.6 mL/min (90-130) 04/13/25 02:18 Glucose 87 mg/dL (65-115) 04/13/25 02:18 Calculated Osmolality 290 mOsm/kg (285-295) 04/13/25 02:18 Lactic Acid 1.4 mmol/L (0.5-2.2) 04/12/25 10:26 Calcium 8.4 mg/dL (8.5-10.5) L 04/13/25 02:18 Magnesium 1.7 mg/dL (1.7-2.3) 04/13/25 02:18 Total Bilirubin 0.2 mg/dL (0.15-1.2) 04/13/25 02:18 AST 17 U/L (0-32) 04/13/25 02:18 ALT 13 U/L (0-33) 04/13/25 02:18 Alkaline Phosphatase 95 U/L (35-105) 04/13/25 02:18 Total Protein 5.2 g/dL (6.6-8.7) L D 04/13/25 02:18 Albumin 3.1 g/dL (3.5-5.2) L 04/13/25 02:18 Globulin 2.1 g/dL (1.3-4.6) 04/13/25 02:18 Urine Color Yellow (Yellow) 04/12/25 15:08 Urine Appearance Clear (CLEAR) 04/12/25 15:08 Urine pH 5.0 (5-7) 04/12/25 15:08 Ur Specific [place] >= 1.099 (1.005-1.030) H 04/12/25 15:08 Urine Protein 1+ (Negative) A 04/12/25 15:08 Urine Glucose (UA) Negative (Normal) 04/12/25 15:08 Urine Ketones 1+ (Negative) H 04/12/25 15:08 Urine Blood 1+ (Negative) A 04/12/25 15:08 Urine Nitrate Negative (Negative) 04/12/25 15:08 Urine Bilirubin Negative (Negative) 04/12/25 15:08 Urine Urobilinogen 0.2 mg/dL (Negative) 04/12/25 15:08 Ur Leukocyte Esterase Negative (Negative) 04/12/25 15:08 Urine RBC 11-20 /hpf (0-2) H 04/12/25 15:08 Urine WBC 21-50 /hpf (0-5) H 04/12/25 15:08 Ur Squamous Epith Cells 0-5 /hpf (0-5) 04/12/25 15:08 Amorphous Sediment Not Reportable 04/12/25 15:08 Urine Bacteria 1+ /hpf (NONE) H 04/12/25 15:08 Hyaline Casts 3.71 /lpf 04/12/25 15:08 C. difficile (PCR) Positive (Negative) H 04/12/25 11:56 C.difficile Tox Confrm Positive (Negative) H 04/12/25 11:56 Influenza A (PCR) Negative (Negative) 04/12/25 10:26 Influenza Type B (PCR) Negative (Negative) 04/12/25 10:26 RSV (PCR) Negative (Negative) 04/12/25 10:26 SARS-CoV-2 (PCR) Negative (Negative) 04/12/25 10:26 Vitals Last Vital Signs Temp 98.3 F 04/13/25 07:38 Pulse 73 04/13/25 07:38 Resp 21 H 04/13/25 08:30 BP 98/61 04/13/25 07:38 Pulse Ox 98 04/13/25 08:30 O2 Del Method Room Air 04/13/25 04:00 Discharge Plan Discharge Patient Disposition: Home Condition: Stable Prescriptions: New fidaxomicin [Dificid] 200 mg Tablet 200 mg PO BID 10 Days Qty: 20 0RF Continued albuterol sulfate [Ventolin HFA] 90 mcg/actuation HFA aerosol inhaler 2 puff inhalation Q6H PRN (Reason: Shortness Of Breath) duloxetine 60 mg capsule,delayed release(DR/EC) 60 mg PO QDAY prochlorperazine maleate 10 mg capsule, extended release See Rx Instructions .ROUTE .COMPLEX PRN (Reason: Nausea) Rx Instructions: 10 mg orally as needed ondansetron HCl 8 mg tablet 8 mg PO Q8H PRN (Reason: nausea/ vomiting ) magnesium 200 mg tablet 200 mg PO DAILY tizanidine 4 mg capsule 4 mg PO Q8H PRN (Reason: Spasms) diazepam [Valium] 5 mg tablet 5 mg PO BID PRN (Reason: Anxiety) biotin 2,500 mcg capsule 5,000 mcg PO DAILY gummie 1 gummy PO PRN PRN (Reason: appetite) isosorbide mononitrate 60 mg tablet extended release 24 hr 60 mg PO DAILY Qty: 90 3RF oxycodone 10 mg tablet 10 mg PO Q4H PRN (Reason: pain) 30 Days Qty: 120 0RF atorvastatin 10 mg tablet 10 mg PO DAILY Changed pantoprazole 40 mg tablet,delayed release (DR/EC) 40 mg PO BIDWM 30 Days Qty: 30 0RF Held metoprolol tartrate 25 mg tablet 25 mg PO DAILY Hold Instructions: Resume on 04/30/25. Hold in the setting of hypotension, review with primary care provider before resuming sennosides [Senna Lax] 8.6 mg tablet 8.6 mg PO DAILY PRN (Reason: Constipation) Hold Instructions: Resume on 04/30/25. Hold in the setting of diarrhea, resume under the direction of primary care provider No Action multivitamin Tablet 1 tab PO DAILY Discharge Order = DC NOW: Discharge Order (Routine); Ordered 04/13/25 Ordered By: Kalpana Baird Referrals: Jennifer Bazan MD [Hospitalist, Oncology] - 04/20/25 7:30 am Johnson Tucker [Primary Care Provider, Family Practice] - 04/15/25 2:30 pm Discharge Diet: Advance as tolerated Discharge Activity: Resume usual activity Patient Instructions: Fidaxomicin (By mouth) (Dificid), C. Diff (Clostridioides Difficile) Infection (DC), Opioid Safety, Patient Portal & [place] Instructions Discharge Attestations Time Spent in Discharge Care*: greater than 30 min Quality Metrics Clinical Quality Measures [ No reported AMI, CVA or VTE this stay] Coding Level of Care Code 31395 Diagnoses C. difficile colitis A04.72 Small cell lung cancer, overlapping sites of left lung C34.82 Gastroesophageal reflux disease without esophagitis K21.9 Esophagitis presence: without esophagitis Primary hypertension I10 Hypertension type: primary hypertension Mixed hyperlipidemia E78.2 Hyperlipidemia type: mixed hyperlipidemia
[2025-04-13 10:40] VITALS: BP 93/62; PULSE 73; RESP 18; O2SAT 96
== END 2025-04-13 11:03 | disposition home or self-care (01) ==
LOC: ER 13:24 → CSU 14:34
PROVIDERS: Admitting Provider Internal Medicine; Emergency Provider Physician Assistant; PCP Family Medicine; Visit Provider Registered Nurse
DX: A04.72 Enterocolitis due to Clostridium difficile, not specified as recurrent (principal); C34.82 Malignant neoplasm of overlapping sites of left bronchus and lung; K21.9 Gastro-esophageal reflux disease without esophagitis; I10 Essential (primary) hypertension; E78.2 Mixed hyperlipidemia; Z79.891 Long term (current) use of opiate analgesic; I25.10 Atherosclerotic heart disease of native coronary artery without angina pectoris; J45.909 Unspecified asthma, uncomplicated; Z95.5 Presence of coronary angioplasty implant and graft; Z80.9 Family history of malignant neoplasm, unspecified; Z87.891 Personal history of nicotine dependence
CPT/HCPCS: 36415; 71045; 71275; 74177; 80053; 81001; 83605; 83735; 85025; 87040; 87086; 87324; 87493; 87637; 93005; 96374; 96375; 99285; G0378; J2405; J2470; J2765; J7030; J7120; J9999

== ENCOUNTER 2025-04-20 07:30 | Oncology outpatient (recurring) (ONCR) | payer OTHER, SELFPAY ==
[2025-04-06 09:20] LABS: Hematocrit 36.7 % (36-47); Hemoglobin 12.10 g/dL (11.27-16.99); Mean Corpuscular HGB Conc 33.0 g/dL (30-55); Mean Corpuscular Hemoglobin 28.8 pg (27-33); Mean Corpuscular Volume 87.4 fl (85-98); Nucleated Red Blood Cells % 0 %; Platelet Count 193 10^3/cmm (157-399); Red Blood Count 4.20 10^6/uL (3.85-5.65); White Blood Count 7.65 10^3/uL (3.29-11.43)
[2025-04-06 09:41] LABS: Alanine Aminotransferase 29 U/L (0-33); Albumin Level 4.2 g/dL (3.5-5.2); Alkaline Phosphatase 154 U/L (35-105); Blood Urea Nitrogen 21 mg/dL (8-23); Calcium 9.1 mg/dL (8.5-10.5); Carbon Dioxide 25 mmol/L (22-29); Chloride 103 mmol/L (98-107); Globulin 2.6 g/dL (1.3-4.6); Glucose 134 mg/dL (65-115); Osmolality Calculated 291 mOsm/kg (285-295); Sodium 138 mmol/L (136-145); Total Protein 6.8 g/dL (6.6-8.7)
[2025-04-06 09:44] LABS: Anion Gap 14.4 (5-19); Aspartate Amino Transferase 30 U/L (0-32); Potassium 4.4 mmol/L (3.5-5.1)
[2025-04-06 09:46] LABS: Slide Review Slide Review Perform
--- NOTE | 2025-04-10 16:00 | PETR_ITS ---
PROCEDURE INFORMATION: Exam: PET/CT Skull Base to Mid-thigh Exam date and time: 04/10/2025 4:54 PM Age: 65 years old Clinical indication: Condition or disease; Primary cancer: Small cell lung cancer LABS AND CLINICAL REPORTS: Glucose: 135 mg/dl Treatment strategy for malignancy (PET staging): Initial Staging (PI) TECHNIQUE: Imaging protocol: Following at least four-hour fasting and following the injection of radiopharmaceutical, low dose CT images were obtained. Then, PET images were obtained. Attenuation corrected images were constructed using the CT scan. Fused images of PET and CT were reviewed. The standardized uptake values (SUV) reported below are maximum values within a region of interest, expressed in gm/ml. Exam includes orbital meatal line to mid-thigh. SUV normalization method: BodyWeight Radiopharmaceutical: 10.61 mCi F-18 FDG (Fluorodeoxyglucose), IV. Time of imaging post radiopharmaceutical administration: 51 minutes Injection site: left ac COMPARISON: CR XR chest 1V portable [id number] 03/19/2025 2:23 PM FINDINGS: Tubes, catheters and devices: Right chest port terminates near the superior cavoatrial junction. Brain: Visualized brain has normal physiologic uptake. Pharynx: No abnormal uptake. Larynx: No abnormal uptake. Lungs, pleura and trachea: Non FDG avid right upper lobe opacity measures 2.9 x 1.2 cm on axial image 77. More medial nodular right upper lobe opacity measures 1.2 cm on axial image 76 and shows low-level uptake with SUV max 3.3. Mild right apical pleural-parenchymal scarring. Mild platelike atelectasis versus scarring along the right upper major fissure. Heart: Normal physiologic uptake. Coronary arteries: Moderate to heavy coronary artery calcification. Mediastinal space: No abnormal uptake. Liver: No abnormal uptake. Gallbladder and biliary ducts: No abnormal uptake. Pancreas: No abnormal uptake. Spleen: Diffuse low-level uptake greater than liver (SUV mean 2.9). No splenomegaly. Adrenal glands: No abnormal uptake. Kidneys and ureters: Normal physiologic uptake. Stomach and bowel: FDG avid pancolonic thickening. Vasculature: No abnormal uptake. Mild systemic atherosclerotic calcification with ascending aortic ectasia measuring 4.1 cm. Lymph nodes: Low-level uptake at nonenlarged right mediastinal and hilar nodes, index showing SUV max 4.0 on axial image 80. Avid FDG uptake at nonenlarged right axillary node, SUV max 7.0 on axial image 69. Skeleton: Diffuse FDG uptake throughout the axial skeletal system and proximal femora without underlying CT abnormality. Mild biphasic spinal curvature. Soft tissues: No suspicious abnormal uptake in the visualized head, neck, chest, abdomen, pelvis, and extremities. There appears to be mild radiotracer extravasation at the imaged right upper arm. Right axillary surgical clips. METRICS: Mediastinal blood pool: SUV mean 1.4 Liver uptake: SUV mean 2.1 PET/PET skull to thigh INIT [id number] IMPRESSION: 1. 1.2 cm mildly FDG avid medial right upper lobe nodule may correspond to reported malignancy. 2. More lateral non FDG avid right upper lobe opacity measures 2.9 x 1.2 cm may represent treated versus benign lesion. 3. Low-level uptake at nonenlarged right mediastinal and hilar nodes may be metastatic or reactive. 4. Pancolitis may be infectious or inflammatory. 5. FDG avid right axillary lymph node showing normal size and morphology likely related to mild right upper extremity radiotracer extravasation, reactive or metastatic node thought unlikely. 6. Diffuse FDG uptake along the axial skeletal system and proximal femora with diffuse splenic uptake likely represents benign hyperplasia/therapeutic change. Underlying metastatic lesion could be obscured. 7. Ascending aortic ectasia measures 4.1 cm.
[2025-04-20 07:52] LABS: Hematocrit 30.4 % (36-47); Hemoglobin 9.80 g/dL (11.27-16.99); Mean Corpuscular HGB Conc 32.2 g/dL (30-55); Mean Corpuscular Hemoglobin 28.3 pg (27-33); Mean Corpuscular Volume 87.9 fl (85-98); Nucleated Red Blood Cells % 0 %; Platelet Count 475 10^3/cmm (157-399); Red Blood Count 3.46 10^6/uL (3.85-5.65); White Blood Count 13.68 10^3/uL (3.29-11.43)
[2025-04-20 08:16] LABS: Alanine Aminotransferase 34 U/L (0-33); Albumin Level 3.6 g/dL (3.5-5.2); Alkaline Phosphatase 62 U/L (35-105); Anion Gap 11.8 (5-19); Aspartate Amino Transferase 29 U/L (0-32); Blood Urea Nitrogen 7 mg/dL (8-23); Calcium 9.0 mg/dL (8.5-10.5); Carbon Dioxide 27 mmol/L (22-29); Chloride 105 mmol/L (98-107); Creatinine Clr Calc Pharmacy 85.7650; Globulin 2.3 g/dL (1.3-4.6); Glucose 106 mg/dL (65-115); Osmolality Calculated 288 mOsm/kg (285-295); Potassium 3.8 mmol/L (3.5-5.1); Sodium 140 mmol/L (136-145); Thyroid Stimulating Hormone 1.37 uIU/mL (0.27-4.20); Total Protein 5.9 g/dL (6.6-8.7)
[2025-04-20] MEDS: diphenhydrAMINE 50 mg/mL SDV 1mL 25 MG IVP (11:13)
[2025-04-20] MEDS: dexamethasone 4 mg/mL INJ 5 mL 12 MG IVP (11:18)
[2025-04-20] MEDS: durvalumab 1,500 MG in sodium chloride 0.9% 250 ML 280 MG IV (12:49)
[2025-04-20] MEDS: etoposide 140 MG in sodium chloride 0.9%(non-DEHP) 500 ML 507 MG IV (15:18)
[2025-04-20 16:24] VITALS: BP 147/91; PULSE 97; RESP 18; TEMP 37.2; O2SAT 97
== END 2025-04-20 23:59 | disposition home or self-care (01) ==
PROVIDERS: Nurse Practitioner; PCP Family Medicine; Visit Provider Internal Medicine Medical Oncology
DX: Z51.11 Encounter for antineoplastic chemotherapy; Z51.12 Encounter for antineoplastic immunotherapy; C34.82 Malignant neoplasm of overlapping sites of left bronchus and lung; Z79.899 Other long term (current) drug therapy; Z79.52 Long term (current) use of systemic steroids; Z79.634 Long term (current) use of topoisomerase inhibitor; Z53.9 Procedure and treatment not carried out, unspecified reason
CPT/HCPCS: 36591; 36592; 78815; 80053; 84443; 85025; 96368; 96375; 96413; 96415; A9552; J1100; J1200; J1453; J3490; J7030; J7040; J7050; J9045; J9173; J9181

== ENCOUNTER 2025-04-27 09:30 | Oncology outpatient (recurring) (ONCR) | payer OTHER, SELFPAY ==
[2025-04-21] MEDS: ondansetron 2 mg/ML SDV 2 mL 8 MG IVP (07:53)
[2025-04-21 07:57] VITALS: BP 94/60; PULSE 90; RESP 18; TEMP 36.5; O2SAT 96
[2025-04-21] MEDS: etoposide 140 MG in sodium chloride 0.9%(non-DEHP) 500 ML 507 MG IV (08:25)
[2025-04-21 09:30] VITALS: BP 102/64; PULSE 85; RESP 17; TEMP 36.7; O2SAT 97
[2025-04-22 07:37] VITALS: BP 113/75; PULSE 87; RESP 17; TEMP 37; O2SAT 98
[2025-04-22] MEDS: etoposide 140 MG in sodium chloride 0.9%(non-DEHP) 500 ML 507 MG IV (08:22)
[2025-04-22] MEDS: pegfilgrastim 6 mg/0.6 mL Kit (onpro) SUBCUT (09:30)
[2025-04-27 10:07] LABS: Hematocrit 30.2 % (36-47); Hemoglobin 9.60 g/dL (11.27-16.99); Mean Corpuscular HGB Conc 31.8 g/dL (30-55); Mean Corpuscular Hemoglobin 29.0 pg (27-33); Mean Corpuscular Volume 91.2 fl (85-98); Nucleated Red Blood Cells % 0 %; Platelet Count 189 10^3/cmm (157-399); Red Blood Count 3.31 10^6/uL (3.85-5.65); White Blood Count 10.47 10^3/uL (3.29-11.43)
[2025-04-27 10:20] LABS: Slide Review Slide Review Perform
[2025-04-27 10:28] LABS: Alanine Aminotransferase 40 U/L (0-33); Albumin Level 3.9 g/dL (3.5-5.2); Alkaline Phosphatase 113 U/L (35-105); Anion Gap 14.4 (5-19); Aspartate Amino Transferase 29 U/L (0-32); Blood Urea Nitrogen 22 mg/dL (8-23); Calcium 9.6 mg/dL (8.5-10.5); Carbon Dioxide 28 mmol/L (22-29); Chloride 104 mmol/L (98-107); Globulin 2.3 g/dL (1.3-4.6); Glucose 96 mg/dL (65-115); Osmolality Calculated 297 mOsm/kg (285-295); Potassium 4.4 mmol/L (3.5-5.1); Sodium 142 mmol/L (136-145); Total Protein 6.2 g/dL (6.6-8.7)
== END 2025-04-29 23:59 | disposition home or self-care (01) ==
PROVIDERS: PCP Family Medicine; Visit Provider Internal Medicine Medical Oncology
DX: C34.82 Malignant neoplasm of overlapping sites of left bronchus and lung (principal); Z53.9 Procedure and treatment not carried out, unspecified reason
CPT/HCPCS: 80053; 85025; 96365; 96375; 96377; J2405; J2469; J2506; J7030; J9181